=== PATIENT | male | born 1950 ===

== ENCOUNTER 2017-07-26 18:13 | Inpatient (IN) | payer MEDICARE, OTHER ==
[2017-07-26] VITALS (12 sets, daily range): BP systolic 79–149; BP diastolic 59–104
[~2017-07-26] VITALS: Ht 193 cm; Wt 129.5 kg
[~2017-07-26 18:13] MED LIST changes: -LEVO-85 PO
--- NOTE | 2017-07-26 18:34 | ER Report ---
History and Physical Time Seen By MD: 18:18 Hx. of Stated Complaint: SEIZURE - COMBATIVE UNRESPONSIVE. HPI/ROS CHIEF COMPLAINT: Seizure, altered mental status, combative,? Right-sided weakness HISTORY OF PRESENT ILLNESS: 57-year-old male brought in by EMS from home. Apparently called the ambulance for right-sided weakness. EMS arrived and the patient state he had a history of a TIA. Patient has a history of alcoholism. Patient subsequently had a seizure in the ambulance by EMS and then woke up postictal and combative. He has purposeful movement of all 4 extremities. Patient does have history and his old records of a fpc clearance from April of this year. He was too intoxicated to get out of a cab. Review of his internal medicine records shows a history of ascites secondary to liver cirrhosis. Endoscopy shows no varices. On arrival, patient has 4 mm pupils which are slowly reactive bilaterally. There seems to be an upward into the right gaze. Patient has gross blood coming from his mouth from biting his tongue during the seizure. Because of the patient's agitation and concerns for his airway. Rapid sequence intubation was performed. Patient was given succinyl choline 150 mg and etomidate 20 mg. A #8 ET tube was inserted after the vocal cords were visualized to approximately 23 cm at the gums. There was good vapor in the tube, good color change on capnography. There were good breath sounds bilaterally with bagging. A portable chest x-ray showed good placement of the tube. Patient was maintained on a Diprivan drip and taken to CT scan as part of a stroke alert. REVIEW OF SYSTEMS: Unable to obtain due to altered mental status Allergies: Coded Allergies: codeine (Verified Allergy, Unknown, 07/26/17) Past Medical/Surgical History Past medical history hypertension, alcoholic liver disease with cirrhosis, ascites status post paracentesis of 5 L, H. pylori, fatty liver, prostate cancer Past surgical history cholecystectomy. , EGD and colonoscopy 02/12 Unable To Obtain Past Medical: Unable to Obtain/Update Reviewed Nurses Notes: Yes Old Medical Records Reviewed: Yes Constitutional Vital Sign - Last 24 Hours 07/26/17 07/26/17 07/26/17 07/26/17 18:18 18:22 18:25 18:25 Pulse 133 133 Resp 26 20 B/P (MAP) 167/139 (148) 196/133 (154) 167/139 Pulse Ox 100 100 O2 Delivery Non-Rebreather O2 Flow Rate 15.0 07/26/17 07/26/17 07/26/17 07/26/17 18:30 18:35 18:40 18:50 Pulse 136 153 136 160 Resp 32 38 26 B/P (MAP) 236/152 (180) 198/137 (157) 196/163 (174) Pulse Ox 90 96 95 89 07/26/17 07/26/17 07/26/17 07/26/17 18:56 19:00 19:14 19:15 Pulse 135 125 129 Resp 20 21 28 B/P (MAP) 177/124 (141) 137/105 (116) Pulse Ox 93 92 94 O2 Delivery Mechanical Ventilator Mechanical Ventilator FiO2 70.0 07/26/17 07/26/17 07/26/17 07/26/17 19:40 19:45 19:50 19:55 Pulse 144 134 130 132 Resp 32 25 21 19 B/P (MAP) 207/153 (171) 186/136 (153) 153/107 (122) Pulse Ox 89 92 92 92 O2 Delivery Mechanical Ventilator Mechanical Ventilator Mechanical Ventilator 07/26/17 07/26/17 07/26/17 07/26/17 20:00 20:05 20:10 20:15 Pulse 131 124 121 124 Resp 23 30 27 Pulse Ox 94 94 94 07/26/17 07/26/17 07/26/17 20:19 20:22 20:25 Temp 100.4 Pulse 123 123 143 Resp 29 25 17 B/P (MAP) 98/69 (79) 97/69 (78) 143/107 (119) Pulse Ox 94 94 93 O2 Delivery Mechanical Ventilator Physical Exam General Appearance: The patient is alert, has no immediate need for airway protection and no signs of toxicity. Hypertensive, tachycardic, vital signs stable, pulse ox stable. On high flow O2, there is purposeful movement of all 4 extremities Eyes: Pupils equal and round no pallor or injection. Gaze appeared upward into the right ENT, Mouth: Mucous membranes are moist. Respiratory: There are no retractions, lungs are clear to auscultation. No wheezing or rails Cardiovascular: Regular rate and rhythm. Gastrointestinal: Abdomen is soft and non tender, no masses, bowel sounds normal. Neurological: Patient unresponsive, combative and agitated. Pupils are reactive and equal bilaterally. There is purposeful movement in all 4 extremities as he struggles against us Skin: Warm and dry, no rashes. Musculoskeletal: Neck is supple non tender. Extremities are nontender, nonswollen and have full range of motion. DIFFERENTIAL DIAGNOSIS: After history and physical exam differential diagnosis was considered for altered mental status including but not limited to hypoglycemia, infectious process, electrolyte abnormality, CVA, alcohol withdrawal seizure, acute delirium, head injury and intoxicants. Medical Decision Making Data Points Result Diagram: 07/26/17182907/26/171829 Laboratory Hematology Test 07/26/17 18:30 07/26/17 18:45 07/26/17 19:34 Red Blood Count 5.32 M/uL (4.00-5.60) Mean Corpuscular Volume 100.7 fL (80.0-96.0) Mean Corpuscular Hemoglobin 32.8 pg (26.0-33.0) Mean Corpuscular Hemoglobin Concent 32.6 g/dL (32.0-36.0) Red Cell Distribution Width 16.9 % (11.5-14.5) Mean Platelet Volume 8.4 fL (7.2-11.1) Neutrophils (%) (Auto) 72.7 % (39.4-72.5) Lymphocytes (%) (Auto) 16.3 % (17.6-49.6) Monocytes (%) (Auto) 9.0 % (4.1-12.4) Eosinophils (%) (Auto) 1.3 % (0.4-6.7) Basophils (%) (Auto) 0.7 % (0.3-1.4) Nucleated RBC Relative Count (auto) 0.0 /100WBC Neutrophils # (Auto) 9.6 K/uL (2.0-7.4) Lymphocytes # (Auto) 2.2 K/uL (1.3-3.6) Monocytes # (Auto) 1.2 K/uL (0.3-1.0) Eosinophils # (Auto) 0.2 K/uL (0.0-0.5) Basophils # (Auto) 0.1 K/uL (0.0-0.1) Nucleated RBC Absolute Count (auto) 0.00 K/uL Prothrombin Time 16.7 seconds (12.0-14.4) Prothromb Time International Ratio 1.33 Activated Partial Thromboplast Time 32 seconds (23-35) Sodium Level 143 mmol/L (137-145) Potassium Level 3.0 mmol/L (3.5-5.0) Chloride Level 93 mmol/L (98-107) Carbon Dioxide Level 19 mmol/L (22-30) Blood Urea Nitrogen 9 mg/dl (9-21) Creatinine 0.80 mg/dl (0.66-1.25) Glomerular Filtration Rate Calc > 60.0 Random Glucose 141 mg/dl (75-110) Calcium Level 10.3 mg/dl (8.4-10.2) Magnesium Level 1.5 mg/dl (1.7-2.2) Total Bilirubin 7.6 mg/dl (0.2-1.3) Aspartate Amino Transf (AST/SGOT) 104 U/L (0-35) Alanine Aminotransferase (ALT/SGPT) 43 U/L (0-56) Alkaline Phosphatase 133 U/L (0-126) Ammonia 271 UMOL/L (9-33) Troponin I < 0.012 ng/ml Total Protein 10.2 gm/dl (6.3-8.2) Albumin 5.1 g/dl (3.5-5.0) Serum Alcohol < 10 mg/dl Urine Opiates Screen Negative Urine Barbiturates Screen Negative Ur Tricyclic Antidepressants Screen Negative Urine Phencyclidine Screen Negative Urine Amphetamines Screen Negative Urine Benzodiazepines Screen Negative Urine Cocaine Screen Negative Urine Cannabinoids Screen Negative Urine Color Katharine Urine Clarity Slightly-cloudy Urine pH 5.0 pH (4.8-9.5) Urine Specific [place] 1.032 Urine Protein 500 mg/dL (NEGATIVE) Urine Glucose (UA) 50 mg/dL (NEGATIVE) Urine Ketones 20 mg/dL (NEGATIVE) Urine Blood Moderate (NEGATIVE) Urine Nitrite Negative (NEGATIVE) Urine Bilirubin Small (NEGATIVE) Urine Urobilinogen 2.0 mg/dL (0.2-1.9) Urine Leukocyte Esterase Negative (NEGATIVE) Urine RBC 12 /HPF (0-2/HPF) Urine WBC 2 /HPF (0-5/HPF) Urine Squamous Epithelial Cells Few /LPF (NONE-FEW) Urine Bacteria Few /HPF (NONE-FEW) Urine Hyaline Casts Many /LPF (NONE-FEW) Urine Mucus Few /HPF (NONE-FEW) Chemistry Test 07/26/17 18:30 07/26/17 18:45 07/26/17 19:34 White Blood Count 13.2 k/uL (4.5-11.0) Red Blood Count 5.32 M/uL (4.00-5.60) Hemoglobin 17.5 g/dL (14.0-18.0) Hematocrit 53.5 % (42.0-52.0) Mean Corpuscular Volume 100.7 fL (80.0-96.0) Mean Corpuscular Hemoglobin 32.8 pg (26.0-33.0) Mean Corpuscular Hemoglobin Concent 32.6 g/dL (32.0-36.0) Red Cell Distribution Width 16.9 % (11.5-14.5) Platelet Count 81 K/uL (150-450) Mean Platelet Volume 8.4 fL (7.2-11.1) Neutrophils (%) (Auto) 72.7 % (39.4-72.5) Lymphocytes (%) (Auto) 16.3 % (17.6-49.6) Monocytes (%) (Auto) 9.0 % (4.1-12.4) Eosinophils (%) (Auto) 1.3 % (0.4-6.7) Basophils (%) (Auto) 0.7 % (0.3-1.4) Nucleated RBC Relative Count (auto) 0.0 /100WBC Neutrophils # (Auto) 9.6 K/uL (2.0-7.4) Lymphocytes # (Auto) 2.2 K/uL (1.3-3.6) Monocytes # (Auto) 1.2 K/uL (0.3-1.0) Eosinophils # (Auto) 0.2 K/uL (0.0-0.5) Basophils # (Auto) 0.1 K/uL (0.0-0.1) Nucleated RBC Absolute Count (auto) 0.00 K/uL Prothrombin Time 16.7 seconds (12.0-14.4) Prothromb Time International Ratio 1.33 Activated Partial Thromboplast Time 32 seconds (23-35) Glomerular Filtration Rate Calc > 60.0 Calcium Level 10.3 mg/dl (8.4-10.2) Magnesium Level 1.5 mg/dl (1.7-2.2) Total Bilirubin 7.6 mg/dl (0.2-1.3) Aspartate Amino Transf (AST/SGOT) 104 U/L (0-35) Alanine Aminotransferase (ALT/SGPT) 43 U/L (0-56) Alkaline Phosphatase 133 U/L (0-126) Ammonia 271 UMOL/L (9-33) Troponin I < 0.012 ng/ml Total Protein 10.2 gm/dl (6.3-8.2) Albumin 5.1 g/dl (3.5-5.0) Serum Alcohol < 10 mg/dl Urine Opiates Screen Negative Urine Barbiturates Screen Negative Ur Tricyclic Antidepressants Screen Negative Urine Phencyclidine Screen Negative Urine Amphetamines Screen Negative Urine Benzodiazepines Screen Negative Urine Cocaine Screen Negative Urine Cannabinoids Screen Negative Urine Color Katharine Urine Clarity Slightly-cloudy Urine pH 5.0 pH (4.8-9.5) Urine Specific [place] 1.032 Urine Protein 500 mg/dL (NEGATIVE) Urine Glucose (UA) 50 mg/dL (NEGATIVE) Urine Ketones 20 mg/dL (NEGATIVE) Urine Blood Moderate (NEGATIVE) Urine Nitrite Negative (NEGATIVE) Urine Bilirubin Small (NEGATIVE) Urine Urobilinogen 2.0 mg/dL (0.2-1.9) Urine Leukocyte Esterase Negative (NEGATIVE) Urine RBC 12 /HPF (0-2/HPF) Urine WBC 2 /HPF (0-5/HPF) Urine Squamous Epithelial Cells Few /LPF (NONE-FEW) Urine Bacteria Few /HPF (NONE-FEW) Urine Hyaline Casts Many /LPF (NONE-FEW) Urine Mucus Few /HPF (NONE-FEW) Coagulation Test 07/26/17 18:30 Prothrombin Time 16.7 seconds Prothromb Time International Ratio 1.33 Activated Partial Thromboplast Time 32 seconds Toxicology Test 07/26/17 18:30 07/26/17 18:45 Serum Alcohol < 10 mg/dl Urine Opiates Screen Negative Urine Barbiturates Screen Negative Ur Tricyclic Antidepressants Screen Negative Urine Phencyclidine Screen Negative Urine Amphetamines Screen Negative Urine Benzodiazepines Screen Negative Urine Cocaine Screen Negative Urine Cannabinoids Screen Negative Urinalysis Test 07/26/17 19:34 Urine Color Katharine Urine Clarity Slightly-cloudy Urine pH 5.0 pH (4.8-9.5) Urine Specific [place] 1.032 Urine Protein 500 mg/dL (NEGATIVE) Urine Glucose (UA) 50 mg/dL (NEGATIVE) Urine Ketones 20 mg/dL (NEGATIVE) Urine Blood Moderate (NEGATIVE) Urine Nitrite Negative (NEGATIVE) Urine Bilirubin Small (NEGATIVE) Urine Urobilinogen 2.0 mg/dL (0.2-1.9) Urine Leukocyte Esterase Negative (NEGATIVE) Urine RBC 12 /HPF (0-2/HPF) Urine WBC 2 /HPF (0-5/HPF) Urine Squamous Epithelial Cells Few /LPF (NONE-FEW) Urine Bacteria Few /HPF (NONE-FEW) Urine Hyaline Casts Many /LPF (NONE-FEW) Urine Mucus Few /HPF (NONE-FEW) EKG/Imaging Imaging X-ray: Single view portable chest x-ray was obtained. I viewed the images myself on the PACS system. My interpretation of the images is: ET tube is in good placement. Partially 37 years above the cristela, lung jolley are clear. The left costophrenic angle is cut off. The radiologist interpretation had no clinically significant variation from this interpretation. Results: CT scan of the [head] was obtained. The results of the study are The study was read by the radiologist. I viewed the images myself on the PACS system. ED Course/Re-evaluation Clinical Indication for ER IV: Hydration, IV Access ED Course Patient was admitted to an examination room by EMS. He was grossly altered and combative. Patient had a seizure at home. Patient has a history of previous alcoholic liver disease. Patient was jailed clearance in April of this year for alcohol intoxication. Patient's followed by Dr. Butt in internal medicine clinic. Please see his notes for additional information. Patient was intubated after arrival to protect his airway due to his altered mental status. Patient was medicated with succinyl choline 150 mg and etomidate 20 mg. Report from the patient was right-sided weakness prior to having seizure while in transport with EMS. On arrival, patient was having snoring respirations and was combative. Patient underwent rapid sequence sedation. Patient was administered several doses of Ativan 2 mg IV as well as rocuronium. A propofol drip was initiated for sedation. Patient was sent to CT scan to rule out catastrophic CVA or intracranial hemorrhage. Diagnostic studies show elevated MCV, elevated ammonia level, elevated bilirubin and mild elevation of his LFTs. Blood alcohol was 0. Urine drug tox screen was negative. 07/26/2017 8:26:22 pm case discussed with Dr. Kevin siddiqui, who accepts patient for admission to ICU Decision to Disposition Date: Jul 26, 2017 Decision to Disposition Time: 18:57 Critical Care Time I spent a total of 90 minutes of critical care time in obtaining history, performing a physical exam, bedside monitoring of interventions, collecting and interpreting tests and discussion with consultants but not including time spent performing procedures. Depart Departure Latest Vital Signs Vital Signs Date Time Temp Pulse Resp B/P (MAP) Pulse Ox O2 Delivery O2 Flow Rate FiO2 07/26/17 20:25 143 17 143/107 (119) 93 07/26/17 20:22 100.4 Mechanical Ventilator 07/26/17 19:00 70.0 07/26/17 18:18 15.0 Impression: Primary Impression: Altered mental status, unspecified Additional Impressions: End stage liver disease Hyperammonemia Hyperbilirubinemia Hypokalemia Hypertension Alcohol withdrawal seizure Condition: Improved Disposition: Admitted from ER Problem Qualifiers Primary Impression: Altered mental status, unspecified Altered mental status type: disorientation Qualified Codes: R41.0 - Disorientation, unspecified Additional Impressions: Hypertension Hypertension type: essential hypertension Qualified Codes: I10 - Essential ( primary) hypertension Alcohol withdrawal seizure Complication of substance-induced condition: with unspecified complication Qualified Codes: F10.239 - Alcohol dependence with withdrawal, unspecified; R56.9 - Unspecified convulsions BREEZY ALCALA DO Jul 26, 2017 18:34
[2017-07-26 18:44] LABS: PLATELET COUNT, AUTOMATED 81 K/uL (150-450)
[2017-07-26] MEDS ORDERED: LORazepam 2 MG/ML VIAL IVP ONE ×4 (18:45→20:25)
[2017-07-26] MEDS ORDERED: ROCURONIUM BROM 10 MG/ML 10 ML IVP PRN (18:50)
[2017-07-26] MEDS ORDERED: LORazepam 2 MG/ML VIAL ONE (18:52)
[2017-07-26 18:53] LABS: INR 1.33
--- NOTE | 2017-07-26 18:58 | RADIOLOGY IMAGING REPORT ---
FACILITY: [facility] PATIENT NAME: Kennedy Polanco : 1950 MR: [id number] V: [id number] EXAM DATE: ORDERING PHYSICIAN: BREEZY ALCALA TECHNOLOGIST: Location: [facility] - [place] Patient: Kennedy Polanco : 1950 Visit/Account:[id number] Date of Sevice: 07/26/2017 CHEST SINGLE AP Indication: Intubated. Tube placement.. Comparison: None available Findings: Endotracheal tubes in place approximately 3-4 cm above the cristela in good position. Lung sounds are decreased causing accentuation to the interstitium. No focal consolidation, pneumotho rax or pleural effusion. Cardiomediastinal silhouette and pulmonary vessels within normal limits for the technique and inspiration and rotation. Upper abdomen is unremarkable. No acute bony abnormality. IMPRESSION: 1. Endotracheal tube is in good position approximately 3-4 cm above the cristela. No pneumothorax. 2. Low lung volumes without indication of acute cardiopulmonary disease. Report Dictated By: Errol Dukes at 07/26/2017 6:51 PM Report E-Signed By: Errol Dukes at 07/26/2017 6:54 PM WSN:[id number]
[2017-07-26] MEDS ORDERED: THIAMINE HCL(*) 200 MG/2 ML IN 100 MG, FOLIC ACID(*) 50 MG/10 ML INJ 1 MG, MULTIVITAMIN... IV ONE (19:03)
[2017-07-26] MEDS ORDERED: DIAZEPAM 10 MG/2 ML SYR IVP ONE ×2 (19:45→20:25)
--- NOTE | 2017-07-26 20:04 | RADIOLOGY IMAGING REPORT ---
FACILITY: PATIENT NAME: Kennedy Polanco : 1950 MR: [id number] V: [id number] EXAM DATE: ORDERING PHYSICIAN: BREEZY ALCALA TECHNOLOGIST: Location: [facility] - [place] Patient: Kennedy Polanco : 1950 Visit/Account:[id number] Date of Sevice: 07/26/2017 EXAMINATION: Head CT without intravenous contrast HISTORY: Altered mental status. COMPARISON: None. TECHNIQUE: Contiguous axial images were obtained from the skull base to the vertex without intraven ous contrast. Sagittal and coronal reformatted images are also submitted. One of the following dose optimization techniques was utilized in the performance of this exam: Autom ated exposure control; adjustment of the mA and/or kV according to the patient's size; or use of an i terative reconstruction technique. Specific details can be referenced in the facility's radiology C T exam operational policy. FINDINGS: Brain and intracranial structures: Mild cerebral volume loss with corresponding mild sulcal prominen ce. Ventricles are normal in size. Basal cisterns are patent. Melendez-white matter differentiation is ma intained. No midline shift, acute hemorrhage, mass, or evidence of acute infarct. Vessels: Calcified plaque of the carotid siphons and distal left vertebral artery. Calvarium / scalp: Negative. Skull base / visualized face: There are multiple tiny bubbles of air within the left parotid gland. Endotracheal tube is partially visualized. Visualized sinuses / orbits: Mild mucosal thickening in the left maxillary sinus. Mild rightward dev iation of the nasal septum. IMPRESSION: No acute intracranial abnormality. Mild cerebral atrophy. Tiny bubbles of air within the left parotid gland. These are of uncertain etiology, however, these co uld potentially be secondary to air within the veins from venous access. Report Dictated By: Demetris Sullivan MD at 07/26/2017 7:52 PM Report E-Signed By: Demetris Sullivan MD at 07/26/2017 8:01 PM WSN:[id number]
[2017-07-26] MEDS ORDERED: LR(*) 1000 ML BAG 1,000 ML ONE (20:07)
[2017-07-26] MEDS: ORAL SUCTION/CHLORHX/SWAB KIT MT SCH (21:00)
[2017-07-26] MEDS ORDERED: DIAZEPAM 10 MG/2 ML SYR ONE (21:21)
[2017-07-26] MEDS ORDERED: MIDAZOLAM IV ONE (21:35)
[2017-07-26] MEDS ORDERED: NS(*) 0.9% 100 ML BAG 100 ML ONE (21:37)
[2017-07-26] MEDS ORDERED: NS(*) 0.9% 500 ML BAG 500 ML ONE (21:40)
--- NOTE | 2017-07-26 22:11 | History & Physical ---
History of Present Illness Chief Complaint Altered mental status, Seizure and R-sided numbness History of Present Illness Mr. Mulligan is a 57-year-old male with PMH of HTN, Alcohol Liver Disease/ Cirrhosis and h/o Prostate Cancer who was brought in by EMS from home. Apparently called the ambulance for right-sided weakness. EMS arrived and the patient state he had a history of a TIA. Patient has a history of alcoholism. Patient subsequently had a seizure in the ambulance by EMS and then woke up postictal and combative. He has purposeful movement of all 4 extremities. Patient does have history and his old records of a senior care clearance from April of this year. He was too intoxicated to get out of a cab. Review of his internal medicine records shows a history of ascites secondary to liver cirrhosis. Endoscopy shows no varices. On arrival, patient has 4 mm pupils which are slowly reactive bilaterally. There seems to be an upward into the right gaze. Patient has gross blood coming from his mouth from biting his tongue during the seizure. Because of the patient's agitation and concerns for his airway. Rapid sequence intubation was performed. Patient was given succinyl choline 150 mg and etomidate 20 mg. A #8 ET tube was inserted after the vocal cords were visualized to approximately 23 cm at the gums. There was good vapor in the tube, good color change on capnography. There were good breath sounds bilaterally with bagging. A portable chest x-ray showed good placement of the tube. Patient was maintained on a Diprivan drip and taken to CT scan as part of a stroke alert. ER evaluation revealed low K level 3.0, high Ammonia level 271, low Mag level1.5 , Proteinuria, Troponin <0.012, AST 104 and ALT 43, T.Bili 7.6, INRis 1.3, Alcohol level <10 and urine tox. negative. His head CT scan was negative for acute stroke.. I discussed the case with the ER-MD and admitted the patient to the ICU for further evaluation and management. Patient is currently intubated, sedated with Propofol and Versed drip for Vent management and seizure/DT management. History Allergies: Coded Allergies: codeine (Verified Allergy, Unknown, 07/26/17) Review of Systems Other I could not obtain ROS Exam Vital Signs Vital Signs Date Time Temp Pulse Resp B/P (MAP) Pulse Ox O2 Delivery O2 Flow Rate FiO2 07/26/17 20:55 99.6 121 22 113/86 (95) 93 Mechanical Ventilator 07/26/17 18:18 15.0 General Appearance: Other (Intubated, Ventilated and sedated ) Neuro: No Gross deficits Eyes: Other (small pupils) ENT: Other (blood tinged sputum from his mouth) Neck: No Masses Cardiovascular: Other (sinus tachycardia) Respiratory: Clear to Auscultation (Ventilated) GI: Abd Soft and Non-Tender, Other (obese) Musculoskeletal: No Weakness/Pain Extremities: Warm, Pulses Integumentary: Skin Intact without Lesion / Mass Psych: Other (sedated and ventilated) Medical Decision Making Data Points Result Diagram: 07/26/17 1830 07/26/17 1830 EKG / Imaging Monitor Interpretation: Sinus Tachycardia Imaging CT Head with no acute pathology Pre-Admit Course ED Medications Reviewed Medical Record Review: Yes Assessment and Plan Problems: (1) Alcohol withdrawal seizure with complication Status: Acute Assessment & Plan: Patient presented with alcohol withdrawal seizure and with AMS requiring immediate intubation to protect his airways. He is on IMV 16, TV 650, PS10, Peep5 and FiO2 70%, He is on Propofol drip and Versed drip to maintained his sedation. He is getting Banana bag for his underlying alcohol related electrolyte disturbance ans fluid management. He is getting DVT prophylaxis with Lovenox and GI prophylaxis with Protonix (2) Acute hypercapnic respiratory failure Status: Acute Assessment & Plan: He is prophylactically intubated to protect his airways due to his alcohol withdrawal and seizure. He is on Propofol and Versed drip to maintained his sedation. He is on IMV 16, TV 650, PS10, Peep5 and FiO2 70%. (3) Electrolyte and fluid disorder Status: Acute Assessment & Plan: I will replace his K and Mag accordingly and I will also check his PO4 level. (4) End stage liver disease Status: Chronic Assessment & Plan: I will start him on OGT and start Lactulose 30ml VOGT qid. I will repeat his Ammonia level in am. Central Venous Access Medical Necessity for Access: Hemodynamic Monitoring, IV Access, Medication Administration Condition Critical Critical Time Spent: 1st 30-74 Minutes Copies to: ALLISON HWANG MD Venous Thromboembolism VTE Risk Physician Assess for VTE Risk: Yes Patient's VTE Risk: High VTE Diagnostic Test 2 Days Prior to Admit: No Antithrombotics Is Pt On Any Antithrombotics?: No Exam Sepsis Risk: No Definite Risk CHUN CUETO MD Jul 26, 2017 22:11
[2017-07-26] MEDS ORDERED: THIAMINE HCL 200 MG/2 ML INJ ONE (22:35)
[2017-07-26] MEDS ORDERED: NS(*) 0.9% 1000 ML BAG 1,000 ML ONE (22:48)
[2017-07-26] MEDS: PROPOFOL(*)1000 MG/100 ML VIAL 100 ML IV PRN (23:56)
[2017-07-26] MEDS: PANTOPRAZOLE SOD 40 MG IV VIAL IVP SCH (23:58)
[2017-07-26] MEDS: LACTULOSE 10 GM/15 ML UDCUP FT SCH (23:58)
[2017-07-27] VITALS (91 sets, daily range): BP systolic 75–110; BP diastolic 56–81
--- NOTE | 2017-07-27 01:35 | RADIOLOGY IMAGING REPORT ---
FACILITY: [facility] - [place] PATIENT NAME: Kennedy Polanco : 1950 MR: [id number] V: [id number] EXAM DATE: ORDERING PHYSICIAN: CHUN CUETO TECHNOLOGIST: Location: [facility] [place] Patient: Kennedy Polanco : 1950 Visit/Account:[id number] Date of Sevice: 07/27/2017 CHEST SINGLE AP COMPARISONS: July 26, 2017 ADDITIONAL PERTINENT HISTORY: Gastric tube placement. FINDINGS: Life-support: Endotracheal tube in stable position. Placement of an NG tube with its tip in the proxi mal portion of the stomach which is mildly distended. Cardiomediastinal silhouette: Negative. Pulmonary vasculature: Suggestion of mild vascular congestion without teresita pulmonary edema. Lung jolley: Decreased lung volumes with mild background atelectatic change. Pleural spaces: Negative. Osseous structures: Negative. Surrounding soft tissues: Negative. IMPRESSION: 1. Life support as detailed above with an NG tube in the proximal portion of the stomach. 2. Mild vascular congestion without teresita pulmonary edema. 3. Decreased lung volumes with mild bibasilar atelectatic change. Report Dictated By: Lionel Padilla MD at 07/27/2017 1:27 AM Report E-Signed By: Lionel Padilla MD at 07/27/2017 1:31 AM WSN:[id number]
[2017-07-27] MEDS ORDERED: KCL/DNS 20 MEQ/1000 ML PREMIX 1,000 ML IV ONE (03:38)
[2017-07-27] MEDS ORDERED: KCL 2 MEQ/ML 20 MEQ/10 ML VIAL 20 MEQ in D5NS(*) 1000 ML BAG 1,000 ML IV SCH (04:00)
[2017-07-27] MEDS: LACTULOSE 10 GM/15 ML UDCUP FT SCH ×4 (05:30→23:32)
[2017-07-27 06:07] LABS: PLATELET COUNT, AUTOMATED 48 K/uL (150-450)
[2017-07-27] MEDS: PROPOFOL(*)1000 MG/100 ML VIAL 100 ML IV PRN ×4 (06:26→22:18)
[2017-07-27] MEDS: KCL (*) 20 MEQ/100 ML PREMIX 100 ML IV SCH ×4 (07:02→13:13)
--- NOTE | 2017-07-27 08:55 | Hospitalist Progress Note ---
Subjective Progress Notes Subjective Mr. Mulligan is a 57-year-old male with PMH of HTN, Alcohol Liver Disease/ Cirrhosis and h/o Prostate Cancer who was brought in by EMS from home. Apparently called the ambulance for right-sided weakness. EMS arrived and the patient state he had a history of a TIA. Patient has a history of alcoholism. Patient subsequently had a seizure in the ambulance by EMS and then woke up postictal and combative. He has purposeful movement of all 4 extremities. Patient does have history and his old records of a fpc clearance from April of this year. He was too intoxicated to get out of a cab. Review of his internal medicine records shows a history of ascites secondary to liver cirrhosis. Endoscopy shows no varices. On arrival, patient has 4 mm pupils which are slowly reactive bilaterally. There seems to be an upward into the right gaze. Patient has gross blood coming from his mouth from biting his tongue during the seizure. Because of the patient's agitation and concerns for his airway. Rapid sequence intubation was performed. Patient was given succinyl choline 150 mg and etomidate 20 mg. A #8 ET tube was inserted after the vocal cords were visualized to approximately 23 cm at the gums. There was good vapor in the tube, good color change on capnography. There were good breath sounds bilaterally with bagging. A portable chest x-ray showed good placement of the tube. Patient was maintained on a Diprivan drip and taken to CT scan as part of a stroke alert. ER evaluation revealed low K level 3.0, high Ammonia level 271, low Mag level1.5 , Proteinuria, Troponin <0.012, AST 104 and ALT 43, T.Bili 7.6, INRis 1.3, Alcohol level <10 and urine tox. negative. His head CT scan was negative for acute stroke.. I discussed the case with the ER-MD and admitted the patient to the ICU for further evaluation and management. Patient is currently intubated, sedated with Propofol and Versed drip for Vent management and seizure/DT management. 07/27: He is still critical, intubated, well sedated with Propofol and Versed but stable on ventilator requiring FiO2 35%. He is hemodynamically stable. His Ammonia level has gone down from 271 to 45 after using Lactulose and fluids. His K level is low 2.8. His Plt. are 48K Patient Complains of: Musculoskeletal: Other (Intubated, sedated and ventilated, could obtain his ROS ) Physical Exam Vital Signs Date Time Temp Pulse Resp B/P (MAP) Pulse Ox O2 Delivery O2 Flow Rate FiO2 07/27/17 07:47 92 07/27/17 07:34 35.0 07/27/17 07:33 16 07/27/17 07:15 97.6 103/76 (85) 96 Mechanical Ventilator 07/26/17 18:18 15.0 Intake and Output 07/28/17 07:00 Output Total 60 ml Balance -60 ml Output Urine Total 60 ml General Appearance: Other (Well sedated) Neuro: No Gross deficits Eyes: Other (small pupils) ENT: Other (intubated with ETT intact) Neck: No Masses Cardiovascular: Normal Rhythm & Peripheral Pulses, Regular Rate and Rhythm, No Edema, No JVD Respiratory: No Respiratory Distress, Clear to Auscultation GI: Soft and Non-Tender Extremities: Soft and Non Tender, Warm, Pulses Integumentary: Skin Intact without Lesion / Mass Psych: Other (sedated) Result Diagram: 07/27/17 0525 07/27/17 0525 Monitor Interpretation: Sinus Tachycardia Assessment and Plan Problems: (1) Alcohol withdrawal seizure with complication Status: Acute Assessment & Plan: Patient presented with alcohol withdrawal seizure and with AMS requiring immediate intubation to protect his airways. He is on IMV 16, TV 650, PS10, Peep5 and FiO2 70%, He is on Propofol drip and Versed drip to maintained his sedation. He is getting Banana bag for his underlying alcohol related electrolyte disturbance ans fluid management. He is getting DVT prophylaxis with Lovenox and GI prophylaxis with Protonix 07/27: No further seizure activity noted and well sedated. I will continue his current management and keep him on Vent. today. I will hold his Lovenox due to hematuria and his low Plt. I will use SCD's. I will try to taper his Versed and evaluate him. I will also taper his Propofol gradually. (2) Acute hypercapnic respiratory failure Status: Acute Assessment & Plan: He is prophylactically intubated to protect his airways due to his alcohol withdrawal and seizure. He is on Propofol and Versed drip to maintained his sedation. He is on IMV 16, TV 650, PS10, Peep5 and FiO2 70%. 07/27: He is still intubated and tolerating FiO2 35%. His airways is maintained. (3) Electrolyte and fluid disorder Status: Acute Assessment & Plan: I will replace his K and Mag accordingly and I will also check his PO4 level. 07/27: His K level is 2.8 and I will give him 80meq KCL today and recheck his K and Mg level in am. I will also check his PO4 level, CBC and CMP in am. I will decrease his IVF to D5NS to 100ml/h (4) End stage liver disease Status: Chronic Assessment & Plan: I will start him on OGT and start Lactulose 30ml VOGT qid. I will repeat his Ammonia level in am. 07/27: He did not have any BM yet but his Ammonia level has decreased from 271 to 45 and his T. bili is 5.1. Central Venous Access Medical Necessity for Access: Hemodynamic Monitoring, IV Access, Medication Administration Critical Time Spent: 1st 30-74 Minutes Copies to: ALLISON HWANG MD Exam Sepsis Risk: No Definite Risk CHUN CUETO MD Jul 27, 2017 08:55
[2017-07-27] MEDS: ORAL SUCTION/CHLORHX/SWAB KIT MT SCH ×2 (09:00→21:00)
[2017-07-27] MEDS ORDERED: ENOXAPARIN 40 MG/0.4ML SYR SC SCH (09:00)
[2017-07-27] MEDS ORDERED: KCL/DNS 20 MEQ/1000 ML PREMIX 1,000 ML IV SCH (10:00)
[2017-07-27] MEDS: MIDAZOLAM 50 MG/10 ML 1ML VIAL 100 MG in NS(*) 0.9% 100 ML BAG 80 ML IV PRN (15:18)
[2017-07-27] MEDS: KCL/DNS 20 MEQ/1000 ML PREMIX 1,000 ML IV SCH (15:22)
[2017-07-27] MEDS: PANTOPRAZOLE SOD 40 MG IV VIAL IVP SCH (21:10)
[2017-07-28] VITALS (58 sets, daily range): BP systolic 91–130; BP diastolic 62–100; Ht 193 cm; Wt 129.5 kg
[2017-07-28] MEDS: KCL/DNS 20 MEQ/1000 ML PREMIX 1,000 ML IV SCH ×3 (01:42→22:43)
[2017-07-28] MEDS: PROPOFOL(*)1000 MG/100 ML VIAL 100 ML IV PRN ×6 (01:43→22:41)
[2017-07-28 05:38] LABS: PLATELET COUNT, AUTOMATED 40 K/uL (150-450)
[2017-07-28] MEDS: LACTULOSE 10 GM/15 ML UDCUP FT SCH ×3 (05:45→17:45)
[2017-07-28] MEDS: MIDAZOLAM 50 MG/10 ML 1ML VIAL 100 MG in NS(*) 0.9% 100 ML BAG 80 ML IV PRN ×2 (05:52→20:32)
[2017-07-28] MEDS: KCL (*) 20 MEQ/100 ML PREMIX 100 ML IV SCH ×2 (06:35→08:42)
--- NOTE | 2017-07-28 08:30 | RADIOLOGY IMAGING REPORT ---
FACILITY: [facility] PATIENT NAME: Kennedy Polanco : 1950 MR: [id number] V: [id number] EXAM DATE: ORDERING PHYSICIAN: KATIE DOSHI TECHNOLOGIST: Location: [facility] Patient: Kennedy Polanco : 1950 Visit/Account:[id number] Date of Sevice: 07/28/2017 CHEST SINGLE AP History: Intubation Comparison 07/27/2017. FINDINGS: Endotracheal tube and NG tube remain in position. Cardiomegaly and mediastinal contour unchanged. P ulmonary vascular congestion mildly improved. No consolidation or gross effusion. No pneumothorax. IMPRESSION: Mild improvement in pulmonary vascular congestion, otherwise stable. Report Dictated By: Sergio Mcbride MD at 07/28/2017 8:25 AM Report E-Signed By: Sergio Mcbride MD at 07/28/2017 8:27 AM WSN:[id number]
[2017-07-28] MEDS: CHLORHEXIDINE 0.12% 18 MG/15ML MM SCH ×2 (08:42→21:02)
[2017-07-28] MEDS: ORAL SUCTION/CHLORHX/SWAB KIT MT SCH ×2 (08:42→21:00)
[2017-07-28] MEDS: MOISTURIZING CREAM 120 GM JAR TP SCH ×2 (10:13→21:03)
[2017-07-28] MEDS: TRIAMCINOLONE ACE 0.1% CR 15GM TP SCH ×2 (10:13→21:03)
[2017-07-28 14:57] LABS: PLATELET COUNT, AUTOMATED 50 K/uL (150-450)
--- NOTE | 2017-07-28 16:04 | Medical Nutrition Therapy ---
Nutrition Anthropometrics Height (Inches): 76.00 Height (Calculated Centimeters: [phone] Weight (Pounds): 265 Weight (Calculated Kilograms): 120.202 BMI Calculated: 32.25 Cameron Nutrition Score: Probably Inadequate Cameron Nutrition Risk Score: 12 Dietary Referral Nutrition Risk Factors: Nutrition Risk Comment: Physical Findings Physical Appearance: Obese BMI 30-39 Skin Appearance Skin Appearance: Edema Edema Location Modifier: Edema Location: Type of Edema: Degree of Edema: Gastrointestinal Symptoms GI Symtoms: Tube Present: NG Bowel Sounds: Recent Bowel Pattern: Stool Characteristics: Nutritional Diagnosis Nutritional Risk Acuity 1: Pulm Fail Vent Nutritional Risk Acuity 2: Liver Cirrhosis Nutritional Risk Acuity 3: Alcohol abuse Past Medical History: End stage liver disease, Hyperammonemia, Hyperbilirubinemia,Hypokalemia Hypertension, Alcohol withdrawal seizure Nutritional Acuity: 1-High Nutrition Diagnosis: Altered GI Function Nutrition Etiology: Alcohol Addiction Nutrition Problem/Etiology/Sym: Altered Gastrointestinal (GI) Function related to compromised exocrine function of related GI organs, e.g., liver AEB diagnosis of end stage liver disease/alcoholic cirrhosis. Energy Requirement: 1850 (6034-2050 per ESPEN (11-14 Kcal/kg)) Protein Requirement: 76 (IBW kg 0.8) Fluid Requirement: 1850 Diet Type: Tube Feeding (TF) Nutrition Intervention: Incr diet as tolerated Nutritional Support Current Enteral / Parental: Tube Feeding Tube Feeding Formulas: Osmolite 1cal/ml-Isotonic Tube Feeding Supplement Streng: Full Rate: 50mL/hr Current Calories: 1272 Current Protein: 53 Nutrition Monitoring & Eval Nutrition Goals: Eat 50-100% Meal RD Patient Assessment Time: [address] Assessment Type: RD Assessment Patient Nutrition Acuity: 1-High Follow Up Date: Jul 29, 2017 Nutritional Comment: Pt admitted to ICU for intubation with ETOH withdrawal. Alb 3.0, Ammonia 45, Glu 113. Pt NPO with Osmolite 1 Wojciech Tube feeding. TF started at 20mL/hr with final rate of 50mL/hr. Final rate will provide 1272 Kcals, 53 grams protein, and 1010mL of free water. Pt also receiving propofol for sedation which contributes 1.1 kcals/mL as fat. Monitor TF tolerance, labs, etc. LANCE ENGLISH Jul 28, 2017 16:04
--- NOTE | 2017-07-28 16:45 | Hospitalist Progress Note ---
Subjective Progress Notes Subjective Patient agitated this am per nursing staff. Propofol had to be increased a bit. Physical Exam Vital Signs Date Time Temp Pulse Resp B/P (MAP) Pulse Ox O2 Delivery O2 Flow Rate FiO2 07/28/17 16:30 101.4 90 21 105/64 (78) 94 Mechanical Ventilator 35.0 07/26/17 18:18 15.0 Intake and Output 07/29/17 07:00 Intake Total 922.9 ml Output Total 365 ml Balance 557.9 ml Intake IV Total 832.9 ml Tube Irrigant 90 ml Output Urine Total 365 ml # Bowel Movements 2 General Appearance: Other (Intubated and sedated.) Neuro: No Gross deficits Cardiovascular: Regular Rate and Rhythm Respiratory: Other (Scattered rhonchi.) GI: Soft and Non-Tender Extremities: Warm, Perfused Integumentary: Skin Intact without Lesion / Mass Psych: Other (Sedated.) Result Diagram: 07/28/17 1405 07/28/17454 Item Value Date Time Calcium Level 8.3 mg/dl L 07/28/17454 Phosphorus Level 2.6 mg/dl 07/28/17 0455 Magnesium Level 2.1 mg/dl 07/28/17 0455 Total Bilirubin 3.9 mg/dl H 07/28/17 0455 Aspartate Amino Transf (AST/SGOT) 67 U/L H 07/28/17 0455 Alanine Aminotransferase (ALT/SGPT) 35 U/L 07/28/17 0455 Alkaline Phosphatase 89 U/L 07/28/17 0455 Ammonia 45 UMOL/L H 07/27/17 0525 Total Protein 6.3 gm/dl 07/28/17 0455 Albumin 3.0 g/dl L 07/28/17 0455 Blood Gas Puncture Site Left radial 07/28/17 08 Blood Gas Patient Temperature 100.4 DEGREES 07/28/17 0812 Arterial Blood pH 7.43 07/28/17 0812 Arterial Blood Partial Pressure CO2 34 mmHg 07/28/17 08 Arterial Blood Partial Pressure O2 66 mmHg 07/28/17 0812 Arterial Blood HCO3 22 mmol/L 07/28/17 08 Arterial Blood Oxygen Saturation 92 % 07/28/17 08 Arterial Blood Base Excess -2.0 mmol/L 07/28/17 08 Nba Test Acceptable 07/28/17 0812 Oxygen Liters/Minute 30% 07/28/17 0812 Prothrombin Time 16.7 seconds H 07/26/17 1830 Prothromb Time International Ratio 1.33 07/26/17 1830 Activated Partial Thromboplast Time 32 seconds 07/26/17 1830 Urine Color Katharine 07/27/17 0500 Urine Clarity Turbid 07/27/17 0500 Urine pH 5.0 pH 07/27/17 0500 Urine Specific [place] 1.030 07/27/17 0500 Urine Protein 30 mg/dL 07/27/17 0500 Urine Glucose (UA) Negative mg/dL 07/27/17 0500 Urine Ketones Trace mg/dL 07/27/17 0500 Urine Blood Negative 07/27/17 0500 Urine Nitrite Negative 07/27/17 0500 Urine Bilirubin Negative 07/27/17 0500 Urine Leukocyte Esterase Negative 07/27/17 0500 Urine RBC 2 /HPF 07/27/17 0500 Urine WBC 7 /HPF 07/27/17 0500 Urine Squamous Epithelial Cells None /LPF 07/27/17 0500 Urine Transitional Epithelial Cells Few /LPF 07/27/17 0500 Urine Amorphous Crystals Moderate /HPF 07/27/17 0500 Urine Bacteria Negative /HPF 07/27/17 0500 Urine Hyaline Casts Moderate /LPF H 07/27/17 0500 Urine Mucus Few /HPF 07/27/17 0500 Imaging FACILITY: [facility] PATIENT NAME: Kennedy Polanco : 1950 MR: [id number] V: [id number] EXAM DATE: [id number] ORDERING PHYSICIAN: KATIE DOSHI TECHNOLOGIST: Location: [facility] [place] Patient: Kennedy Polanco : 1950 Visit/Account:[id number] Date of Sevice: 07/28/2017 CHEST SINGLE AP History: Intubation Comparison 07/27/2017. FINDINGS: Endotracheal tube and NG tube remain in position. Cardiomegaly and mediastinal contour unchanged. Pulmonary vascular congestion mildly improved. No consolidation or gross effusion. No pneumothorax. IMPRESSION: Mild improvement in pulmonary vascular congestion, otherwise stable. Report Dictated By: Sergio Mcbride MD at 07/28/2017 8:25 AM Report E-Signed By: Sergio Mcbride MD at 07/28/2017 8:27 AM WSN:[id number] Monitor Interpretation: Sinus Tachycardia Assessment and Plan Problems: (1) Alcohol withdrawal seizure with complication Status: Acute Assessment & Plan: Patient presented with alcohol withdrawal seizure and with AMS requiring immediate intubation to protect his airways. He is on IMV 16, TV 650, PS10, Peep5 and FiO2 70%, He is on Propofol drip and Versed drip to maintained his sedation. He is getting Banana bag for his underlying alcohol related electrolyte disturbance ans fluid management. He is getting GI prophylaxis with Protonix. 07/27: No further seizure activity noted and well sedated. I will continue his current management and keep him on Vent. today. I will hold his Lovenox due to hematuria and his low Plt. I will use SCD's. I will try to taper his Versed and evaluate him. I will also taper his Propofol gradually. 07/28: With taper of sedation, the patient became agitated. Will continue with intubation and sedation. Platelet count 40K this am. Will repeat a CBC this afternoon. He has hematuria and oozing from tongue trauma with seizure. PS increased to 15. (2) Acute hypercapnic respiratory failure Status: Acute Assessment & Plan: He is prophylactically intubated to protect his airways due to his alcohol withdrawal and seizure. He is on Propofol and Versed drip to maintained his sedation. He is on IMV 16, TV 650, PS10, Peep5 and FiO2 70%. 07/27: He is still intubated and tolerating FiO2 35%. His airways is maintained. 07/28: His PS has been increased and his respiratory rate has improved. (3) Electrolyte and fluid disorder Status: Acute Assessment & Plan: I will replace his K and Mag accordingly and I will also check his PO4 level. 07/27: His K level is 2.8 and I will give him 80meq KCL today and recheck his K and Mg level in am. I will also check his PO4 level, CBC and CMP in am. I will decrease his IVF to D5NS to 100ml/h 07/28: His potassium is 3.3 today. Magnesium and phosphorus are now normal. He will receive a K-rider today. Repeat labs in am. (4) End stage liver disease Status: Chronic Assessment & Plan: I will start him on OGT and start Lactulose 30ml VOGT qid. I will repeat his Ammonia level in am. 07/27: He did not have any BM yet but his Ammonia level has decreased from 271 to 45 and his T. bili is 5.1. 07/28: The patient remains on lactulose. Will repeat ammonia level in am. He is now having BMs. Central Venous Access Medical Necessity for Access: Hemodynamic Monitoring, IV Access, Medication Administration Time Spent on Plan of Care: < 30 min Exam Sepsis Risk: No Definite Risk KATIE DOSHI MD Jul 28, 2017 16:45
[2017-07-28] MEDS ORDERED: FOLIC ACID 50 MG/10 ML 1ML INJ IVP ONE (20:00)
[2017-07-28] MEDS: THIAMINE HCL 200 MG/2 ML INJ IVP SCH (20:34)
[2017-07-28] MEDS: PANTOPRAZOLE SOD 40 MG IV VIAL IVP SCH (21:04)
[2017-07-29] VITALS (48 sets, daily range): BP systolic 98–131; BP diastolic 61–89
[2017-07-29] MEDS: LACTULOSE 10 GM/15 ML UDCUP FT SCH ×4 (00:26→20:17)
[2017-07-29] MEDS: PROPOFOL(*)1000 MG/100 ML VIAL 100 ML IV PRN ×4 (01:31→17:48)
[2017-07-29 05:38] LABS: INR 1.52
[2017-07-29 05:46] LABS: PLATELET COUNT, AUTOMATED 47 K/uL (150-450)
--- NOTE | 2017-07-29 06:26 | RADIOLOGY IMAGING REPORT ---
FACILITY: [facility] [place] PATIENT NAME: Kennedy Polanco : 1950 MR: [id number] V: [id number] EXAM DATE: ORDERING PHYSICIAN: KATIE DOSHI TECHNOLOGIST: Location: [facility] [place] Patient: Kennedy Polanco : 1950 Visit/Account:[id number] Date of Sevice: 07/29/2017 CHEST SINGLE AP COMPARISONS: 2 view chest dated February 11, 2017 ADDITIONAL PERTINENT HISTORY: Intubated, detoxing. FINDINGS: Life-support: Endotracheal tube in good position with its tip approximately 7 cm above the cristela. NG tube coursing off the field of view Cardiomediastinal silhouette: Mild cardiomegaly. Otherwise negative Pulmonary vasculature: Negative. Lung jolley: Patchy areas of opacity both lung bases which could represent either areas of atelectat ic change versus infiltrate. Pleural spaces: Negative. Osseous structures: Negative. Surrounding soft tissues: Negative. IMPRESSION: 1. Life support in good position. 2. Strandy areas of opacity in both lung bases either representing atelectatic change versus infiltra te. Report Dictated By: Lionel Padilla MD at 07/29/2017 6:18 AM Report E-Signed By: Lionel Padilla MD at 07/29/2017 6:22 AM WSN:[id number]
[2017-07-29] MEDS ORDERED: methylPREDNIS SUCC 125 MG/2ML IVP ONE (07:50)
[2017-07-29] MEDS ORDERED: MAGNESIUM SUL* 2 GM/50 ML IVPB 50 ML IVPB ONE (08:30)
[2017-07-29] MEDS: TRIAMCINOLONE ACE 0.1% CR 15GM TP SCH ×2 (09:07→20:17)
[2017-07-29] MEDS: ORAL SUCTION/CHLORHX/SWAB KIT MT SCH ×2 (09:07→20:18)
[2017-07-29] MEDS: MOISTURIZING CREAM 120 GM JAR TP SCH ×2 (09:07→20:18)
[2017-07-29] MEDS: KCL/DNS 20 MEQ/1000 ML PREMIX 1,000 ML IV SCH (09:08)
--- NOTE | 2017-07-29 09:46 | Procedure Note ---
Central Line Procedure Note Indication for Central Line: Need for venous access for medication administration, imaging study injection site and lab draws. Consent Signed: No (No family or POA available; proceeded due to medical necessity) Central Line Lumen: Triple Central Line Procedure: Chlorhexidine Prep, Sterile Drapes Applied, Sterile Dressing Applied Central Line Position: L Subclavian Anesthesia Used: 1% Lidocaine (5) CC's of Anesthesia: 5 Complications: None Central Line Post Position: Sutured, Confirmed Blood Return, Position Confirmed w/CXR Comment Platelets recognized at 47. Accessed on first pass. DANISH BARBA MD Jul 29, 2017 09:45
--- NOTE | 2017-07-29 10:07 | RADIOLOGY IMAGING REPORT ---
FACILITY: [facility] PATIENT NAME: Kennedy Polanco : 1950 MR: [id number] V: [id number] EXAM DATE: ORDERING PHYSICIAN: DANISH BARBA TECHNOLOGIST: Location: [facility] Patient: Kennedy Polanco : 1950 Visit/Account:[id number] Date of Sevice: 07/29/2017 CHEST SINGLE AP Indication: central line placement Comparison: Chest x-ray 07/29/2017. Findings: There is a new left subclavian central venous catheter with its tip in the central portion of the lef t innominate vein. There is no evidence of pneumothorax. Endotracheal tube tip is in good position distal third of the trachea. There is a nasogastric tube with its tip in the body the stomach. Lungs: Hazy opacity right lung base and left lung base are unchanged. Upper lung zones are clear. Mediastinum/pulmonary vasculature: Heart size and pulmonary vasculature are normal. Bones/soft tissues: Normal. IMPRESSION: 1. New left subclavian central venous catheter in good position. No evidence of pneumothorax. 2. Endotracheal tube and nasogastric tube in good position. 3. Bibasilar hazy opacities, unchanged. Differential diagnosis includes atelectasis and pneumonia. Report Dictated By: Jeovanny Frausto at 07/29/2017 10:01 AM Report E-Signed By: Jeovanny Frausto at 07/29/2017 10:04 AM WSN:[id number]
[2017-07-29] MEDS: KCL (*) 20 MEQ/100 ML PREMIX 100 ML IV SCH ×4 (10:17→15:11)
--- NOTE | 2017-07-29 10:33 | Medical Nutrition Therapy ---
Nutrition Anthropometrics Height (Inches): 76.00 Height (Calculated Centimeters: 193.062638 Weight (Pounds): 281 Weight (Calculated Kilograms): 127.601 BMI Calculated: 32.25 Cameron Nutrition Score: Probably Inadequate Cameron Nutrition Risk Score: 13 Dietary Referral Nutrition Risk Factors: Nutrition Risk Comment: Physical Findings Physical Appearance: Obese BMI 30-39 Skin Appearance Skin Appearance: Edema Edema Location Modifier: Edema Location: Type of Edema: Degree of Edema: Gastrointestinal Symptoms GI Symtoms: Tube Present: NG Bowel Sounds: Recent Bowel Pattern: Stool Characteristics: Nutritional Diagnosis Nutritional Risk Acuity 1: Pulm Fail Vent Nutritional Risk Acuity 2: Liver Cirrhosis Nutritional Risk Acuity 3: Alcohol abuse Past Medical History: End stage liver disease, Hyperammonemia, Hyperbilirubinemia,Hypokalemia Hypertension, Alcohol withdrawal seizure Nutritional Acuity: 1-High Nutrition Diagnosis: Altered GI Function Nutrition Etiology: Alcohol Addiction Nutrition Problem/Etiology/Sym: Altered Gastrointestinal (GI) Function related to compromised exocrine function of related GI organs, e.g., liver AEB diagnosis of end stage liver disease/alcoholic cirrhosis. Energy Requirement: 1850 (3576-6762 per ESPEN (11-14 Kcal/kg)) Protein Requirement: 76 (IBW kg 0.8) Fluid Requirement: 1850 Diet Type: Tube Feeding (TF) Nutrition Intervention: Incr diet as tolerated Nutritional Support Current Enteral / Parental: Tube Feeding Tube Feeding Formulas: Osmolite 1cal/ml-Isotonic Tube Feeding Supplement Streng: Full Rate: 50mL/hr Current Calories: 1272 Current Protein: 53 Current Lipids Calories: 694 (from propofol at 26mls/hr) Total Current Calories: 1969 Recommended Tube Feeding Formu: Specialty Formula (promote) Recommended Tube Feeding Formu: 50ml/hr Recommended Duration: 24 Recommended Calories: 1200 Recommended Protein: 75 Recommended Lipids Calories: 694 (propofol at 26mls/hr) Total Recommended Calories: 1894 Nutrition Monitoring & Eval Nutritional Goals Comment: TF will meet nutr needs until oral intake can meet needs. RD Patient Assessment Time: [address] Assessment Type: RD Re-Assessment Patient Nutrition Acuity: 1-High Follow Up Date: Jul 31, 2017 Nutritional Comment: Pt admitted to ICU for intubation with ETOH withdrawal. Alb 3.0, Ammonia 45, Glu 113. Pt NPO with Osmolite 1 Wojciech Tube feeding. TF started at 20mL/hr with final rate of 50mL/hr. Final rate will provide 1272 Kcals, 53 grams protein, and 1010mL of free water. Pt also receiving propofol for sedation which contributes 1.1 kcals/mL as fat. Monitor TF tolerance, labs, etc. 07/29 Pt recieving Osmolite at 50ml/hr. Pt having residuals 100-215ml. Current TF is meeting 106% est kcal needs with propofol at 256mls/hr but only 70% est protein needs. Pt may benefit from Promote at 50 ml/hr which would meet 100% of protein and 102% of kcal needs with propofol. Recommend cont on Osmolite however until TF better tolerated. Will cont to monitor. SONIA COX Jul 29, 2017 10:33
[2017-07-29] MEDS: NS(*) 0.9% 500 ML BAG 500 ML IV PRN ×2 (11:50→20:42)
[2017-07-29] MEDS: IMIPENEM/CILASTA(*) 500MG VIAL 500 MG in NS(*) 0.9% 100 ML BAG 100 ML IVPB SCH ×3 (11:51→23:53)
[2017-07-29] MEDS: MIDAZOLAM 50 MG/10 ML 1ML VIAL 100 MG in NS(*) 0.9% 100 ML BAG 80 ML IV PRN (12:07)
--- NOTE | 2017-07-29 12:18 | Hospitalist Progress Note ---
Subjective Progress Notes Subjective Mr. Mulligan is a 57-year-old male with PMH of HTN, Alcohol Liver Disease/ Cirrhosis and h/o Prostate Cancer who was brought in by EMS from home. Apparently called the ambulance for right-sided weakness. EMS arrived and the patient state he had a history of a TIA. Patient has a history of alcoholism. Patient subsequently had a seizure in the ambulance by EMS and then woke up postictal and combative. He has purposeful movement of all 4 extremities. Patient does have history and his old records of a shelter clearance from April of this year. He was too intoxicated to get out of a cab. Review of his internal medicine records shows a history of ascites secondary to liver cirrhosis. Endoscopy shows no varices. On arrival, patient has 4 mm pupils which are slowly reactive bilaterally. There seems to be an upward into the right gaze. Patient has gross blood coming from his mouth from biting his tongue during the seizure. Because of the patient's agitation and concerns for his airway. Rapid sequence intubation was performed. Patient was given succinyl choline 150 mg and etomidate 20 mg. A #8 ET tube was inserted after the vocal cords were visualized to approximately 23 cm at the gums. There was good vapor in the tube, good color change on capnography. There were good breath sounds bilaterally with bagging. A portable chest x-ray showed good placement of the tube. Patient was maintained on a Diprivan drip and taken to CT scan as part of a stroke alert. ER evaluation revealed low K level 3.0, high Ammonia level 271, low Mag level1.5 , Proteinuria, Troponin <0.012, AST 104 and ALT 43, T.Bili 7.6, INRis 1.3, Alcohol level <10 and urine tox. negative. His head CT scan was negative for acute stroke.. I discussed the case with the ER-MD and admitted the patient to the ICU for further evaluation and management. Patient is currently intubated, sedated with Propofol and Versed drip for Vent management and seizure/DT management. 07/27: He is still critical, intubated, well sedated with Propofol and Versed but stable on ventilator requiring FiO2 35%. He is hemodynamically stable. His Ammonia level has gone down from 271 to 45 after using Lactulose and fluids. His K level is low 2.8. His Plt. are 48K 07/29: Mr. Mulligan is still intubated, ventilated and sedated with Propofol and Versed. He developed fever, purulent discharge from his nostrils and his CXR with RLL atelectasis vs infiltrates. His tongue is swollen and with blood tinged oral secretions. He bit his tongue during his seizure episode. No further seizure noted. He has cheung cath. with hematuria. His Plt are in 47K. Patient Complains of: Neurological: Other (ROS could not obtain due to sedation) Physical Exam Vital Signs Date Time Temp Pulse Resp B/P (MAP) Pulse Ox O2 Delivery O2 Flow Rate FiO2 07/29/17 11:29 30.0 07/29/17 11:23 79 07/29/17 11:22 93 Mechanical Ventilator 07/29/17 11:00 98.4 17 110/70 (83) 07/26/17 18:18 15.0 Intake and Output 07/30/17 07:00 Intake Total 237 ml Output Total 115 ml Balance 122 ml Intake IV Total 177 ml Tube Irrigant 60 ml Output Urine Total 115 ml General Appearance: Other (intubated and sedated) Neuro: No Gross deficits Eyes: Other (sluggish pupils) ENT: Other (significant tongue edema and erythyma ) Cardiovascular: Normal Rhythm & Peripheral Pulses Respiratory: No Respiratory Distress (intubated) GI: Soft and Non-Tender Integumentary: Skin Intact without Lesion / Mass Psych: Other (sedated) Result Diagram: 07/29/17 0514 07/29/17 0514 Monitor Interpretation: Sinus Tachycardia Assessment and Plan Problems: (1) Alcohol withdrawal seizure with complication Status: Acute Assessment & Plan: Patient presented with alcohol withdrawal seizure and with AMS requiring immediate intubation to protect his airways. He is on IMV 16, TV 650, PS10, Peep5 and FiO2 70%, He is on Propofol drip and Versed drip to maintained his sedation. He is getting Banana bag for his underlying alcohol related electrolyte disturbance ans fluid management. He is getting GI prophylaxis with Protonix. 07/27: No further seizure activity noted and well sedated. I will continue his current management and keep him on Vent. today. I will hold his Lovenox due to hematuria and his low Plt. I will use SCD's. I will try to taper his Versed and evaluate him. I will also taper his Propofol gradually. 07/28: With taper of sedation, the patient became agitated. Will continue with intubation and sedation. Platelet count 40K this am. Will repeat a CBC this afternoon. He has hematuria and oozing from tongue trauma with seizure. PS increased to 15. 07/29: He is still requiring ventilator and sedation due to his tongue edema and he developed fever. I will get blood CX/S, Sputum and nasal CX/S, U/A and start him on Primaxin 500mg IV q6h. I will obtain TLC for better IV access by surgery. I discussed the case with Dr. Bo. I will also start him on Steroids for tongue edema with Solumedrol 125mg 1st dose and then 60mg bid and get ENT evaluation. I will keep him on Ventilator (2) Acute hypercapnic respiratory failure Status: Acute Assessment & Plan: He is prophylactically intubated to protect his airways due to his alcohol withdrawal and seizure. He is on Propofol and Versed drip to maintained his sedation. He is on IMV 16, TV 650, PS10, Peep5 and FiO2 70%. 07/27: He is still intubated and tolerating FiO2 35%. His airways is maintained. 07/28: His PS has been increased and his respiratory rate has improved. 07/29: He still requires Ventilator (3) Electrolyte and fluid disorder Status: Acute Assessment & Plan: I will replace his K and Mag accordingly and I will also check his PO4 level. 07/27: His K level is 2.8 and I will give him 80meq KCL today and recheck his K and Mg level in am. I will also check his PO4 level, CBC and CMP in am. I will decrease his IVF to D5NS to 100ml/h 07/28: His potassium is 3.3 today. Magnesium and phosphorus are now normal. He will receive a K-rider today. Repeat labs in am. 07/29: I will replace his K and Mg today with KCL 80meq and MgSO4 2gm IV today and repeat his labs in am (4) End stage liver disease Status: Chronic Assessment & Plan: I will start him on OGT and start Lactulose 30ml VOGT qid. I will repeat his Ammonia level in am. 07/27: He did not have any BM yet but his Ammonia level has decreased from 271 to 45 and his T. bili is 5.1. 07/28: The patient remains on lactulose. Will repeat ammonia level in am. He is now having BMs. 07/29: I will decrease his Lactulose to 30ml VOGT bid. and get Ammonia level in am Central Venous Access Medical Necessity for Access: Hemodynamic Monitoring, IV Access, Medication Administration Critical Time Spent: 30-74 Minutes Copies to: ALLISON HWANG MD Exam Sepsis Risk: No Definite Risk CHUN CUETO MD Jul 29, 2017 12:18
--- NOTE | 2017-07-29 12:57 | Antimicrobial Stewardship ---
Antimicrobial Stewardship MD Service: Hospitalist Indications: Other (Sinusitis, potential Pneumonia, tongue bite) Antimicrobial Used 07/29/17: Started Primaxin 500mg IV q6h - oral randal, pneumonia, sinusitis, tongue bite Duration of Therapy: pending cultures, 7-10 days Start Date: Jul 29, 2017 Height (Calculated Centimeters: 193.187137 Weight (Calculated Kilograms): 127.601 Creatinine Cl 07/29/17: Scr =0.6, CrCl>100mL/min, watch urine output Culture Results: Yes (07/29/17 - Acevedo cultures ordered: sputum, nasal drainage , blood cultures, urine culture) Recommendations re: Culture 07/29/17: Acevedo cultured-- final results pending Sputum: +WBC, 3+ GPC, 3+ GPR, 1+GNR Nasal: 2+ GPC, 1+ GPR, rare GNR Blood: NGTD Comments 67 yo M with a PMH of cirrhosis, fatty liver, ascites, heavy alcohol consumption , H. pylori, and HTN who presented to the ED via ambulance for altered mental status and seizure en route to ED. Intubated to protect airway. During seizure , bit his tongue, which is now swollen and bruised, also with copious nasal drainage and with fever Tmax 102.4 (07/29/17) 07/26/17- Chest xray wnl 07/29/17- Chest xray - possible infiltrates/pneumonia vs. atelectasis Acevedo cultures as above- Started on Primaxin 500mg IV q6h, may need to broaden coverage until cultures return. Broaden coverage with Vancomycin. Recommend adding: Vancomycin 2.5g IV x 1 load, then 2g IV q12h, trough goal 15-20 Kanika Cruz, PharmD, BCOP KANIKA CRUZ Jul 29, 2017 11:41
[2017-07-29] MEDS ORDERED: VANCOMYCIN(*) 1 GM VIAL 2.5 GM in NS(*) 0.9% 250 ML BAG 250 ML IVPB ONE (13:30)
[2017-07-29] MEDS: FOLIC ACID 50 MG/10 ML 1ML INJ IV SCH (20:18)
[2017-07-29] MEDS: THIAMINE HCL 200 MG/2 ML INJ IVP SCH (20:19)
[2017-07-29] MEDS ORDERED: FUROSEMIDE 40 MG/4 ML VIAL IVP ONE (20:30)
[2017-07-29] MEDS: methylPREDNIS SUCC 125 MG/2ML IVP SCH (20:41)
[2017-07-29] MEDS: PANTOPRAZOLE SOD 40 MG IV VIAL IVP SCH (20:42)
[2017-07-30] VITALS (39 sets, daily range): BP systolic 94–127; BP diastolic 58–81
[2017-07-30] MEDS ORDERED: VANCOMYCIN(*) 1 GM VIAL 2 GM in NS(*) 0.9% 250 ML BAG 250 ML IVPB SCH (01:30)
[2017-07-30] MEDS: KCL/DNS 20 MEQ/1000 ML PREMIX 1,000 ML IV SCH (04:38)
[2017-07-30] MEDS: IMIPENEM/CILASTA(*) 500MG VIAL 500 MG in NS(*) 0.9% 100 ML BAG 100 ML IVPB SCH ×4 (05:17→23:54)
[2017-07-30] MEDS: PROPOFOL(*)1000 MG/100 ML VIAL 100 ML IV PRN ×4 (05:18→23:54)
[2017-07-30 05:34] LABS: PLATELET COUNT, AUTOMATED 51 K/uL (150-450)
[2017-07-30 05:38] LABS: INR 1.56
--- NOTE | 2017-07-30 06:08 | RADIOLOGY IMAGING REPORT ---
FACILITY: [facility] - [place] PATIENT NAME: Kennedy Polanco : 1950 MR: [id number] V: [id number] EXAM DATE: ORDERING PHYSICIAN: CHUN CUETO TECHNOLOGIST: [place] [facility] [place] Pol[place] : 1950 Visit/Account:[id number] Date of Sevice: 07/30/2017 CHEST SINGLE AP COMPARISONS: July 29, 2017 ADDITIONAL PERTINENT HISTORY: Intubated FINDINGS: Life-support: Endotracheal tube, NG tube and a left-sided PICC line in stable position. Cardiomediastinal silhouette: Mild cardiomegaly, stable from previous exam Pulmonary vasculature: Negative. Lung jolley: Continued patchy areas of opacity both lung bases improved from previous exam likely re presenting atelectatic change. Pleural spaces: Negative. Osseous structures: Negative. Surrounding soft tissues: Negative. IMPRESSION: 1. Interval improvement in bibasilar atelectatic change. 2. Remaining portions of the exam are stable. Report Dictated By: Lionel Padilla MD at 07/30/2017 6:02 AM Report E-Signed By: Lionel Padilla MD at 07/30/2017 6:04 AM WSN:[id number]
[2017-07-30] MEDS ORDERED: [UNRECOGNIZED DRUG - OTHER] IV ONE ×2 (08:15→10:00)
[2017-07-30] MEDS: TRIAMCINOLONE ACE 0.1% CR 15GM TP SCH ×2 (09:15→20:20)
[2017-07-30] MEDS: LACTULOSE 10 GM/15 ML UDCUP FT SCH ×2 (09:15→20:20)
[2017-07-30] MEDS: methylPREDNIS SUCC 125 MG/2ML IVP SCH ×2 (09:15→20:21)
[2017-07-30] MEDS: ORAL SUCTION/CHLORHX/SWAB KIT MT SCH ×2 (10:13→20:21)
[2017-07-30] MEDS: MOISTURIZING CREAM 120 GM JAR TP SCH ×2 (10:28→20:20)
[2017-07-30] MEDS ORDERED: NS 0.9% 50 ML VIAL 50 ML ONE (13:54)
[2017-07-30] MEDS ORDERED: IOPAMIDOL 76% 75 ML INFUS BTL 75 ML ONE (13:54)
[2017-07-30] MEDS: VANCOMYCIN(*) 1 GM VIAL 2 GM in NS(*) 0.9% 250 ML BAG 250 ML IVPB SCH ×2 (14:28→22:23)
--- NOTE | 2017-07-30 15:08 | Hospitalist Progress Note ---
Subjective Progress Notes Subjective The patient has been having high residuals of TF. More than what is being infused. No concerns from RT about the ventilator. Physical Exam Vital Signs Date Time Temp Pulse Resp B/P (MAP) Pulse Ox O2 Delivery O2 Flow Rate FiO2 07/30/17 13:02 91 Mechanical Ventilator 30.0 07/30/17 13:02 65 16 07/30/17 12:30 105/67 (80) 07/30/17 12:00 97.8 07/26/17 18:18 15.0 Intake and Output 07/31/17 07:00 Intake Total 26 ml Output Total 40 ml Balance -14 ml Intake Oral 0 ml IV Total 26 ml Output Urine Total 40 ml General Appearance: No Acute Distress, Other Neuro: Other (Intubated and sedated) Eyes: PERRLA ENT: Other (Tongue is greyish pink with a whitish watery fluid around it.) Cardiovascular: Regular Rate and Rhythm Respiratory: Clear to Auscultation Result Diagram: 07/30/17 0520 07/30/17 0520 Monitor Interpretation: Sinus Tachycardia Assessment and Plan Problems: (1) Alcohol withdrawal seizure with complication Status: Acute Assessment & Plan: Patient presented with alcohol withdrawal seizure and with AMS requiring immediate intubation to protect his airways. He is on IMV 16, TV 650, PS10, Peep5 and FiO2 70%, He is on Propofol drip and Versed drip to maintained his sedation. He is getting Banana bag for his underlying alcohol related electrolyte disturbance ans fluid management. He is getting GI prophylaxis with Protonix. 07/27: No further seizure activity noted and well sedated. I will continue his current management and keep him on Vent. today. I will hold his Lovenox due to hematuria and his low Plt. I will use SCD's. I will try to taper his Versed and evaluate him. I will also taper his Propofol gradually. 07/28: With taper of sedation, the patient became agitated. Will continue with intubation and sedation. Platelet count 40K this am. Will repeat a CBC this afternoon. He has hematuria and oozing from tongue trauma with seizure. PS increased to 15. 07/29: He is still requiring ventilator and sedation due to his tongue edema and he developed fever. I will get blood CX/S, Sputum and nasal CX/S, U/A and start him on Primaxin 500mg IV q6h. I will obtain TLC for better IV access by surgery. I discussed the case with Dr. Bo. I will also start him on Steroids for tongue edema with Solumedrol 125mg 1st dose and then 60mg bid and get ENT evaluation. I will keep him on Ventilator 07/30: He is on minimal setting on the ventilator. Will change to just Propofol for sedation and stop Versed. He is getting close to being extubated, but concerned about the tongue. CT of the neck is pending. (2) Acute hypercapnic respiratory failure Status: Acute Assessment & Plan: He is prophylactically intubated to protect his airways due to his alcohol withdrawal and seizure. He is on Propofol and Versed drip to maintained his sedation. He is on IMV 16, TV 650, PS10, Peep5 and FiO2 70%. 07/27: He is still intubated and tolerating FiO2 35%. His airways is maintained. 07/28: His PS has been increased and his respiratory rate has improved. 07/29: He still requires Ventilator 07/30: See above. (3) Pneumonia Status: Acute Assessment & Plan: Bilateral infiltrate by CXR. He is on Primaxin. Minimal O2 requirement. Will follow. (4) Tongue abnormality Status: Acute Assessment & Plan: It was noted that he had an enlarged tongue with a whitish liquid around it concerning for a purulent discharge. He likely bit his tongue during a seizure before admission. Steroids were started on 07/30 and Primaxin. Will ENT to evaluate tomorrow. (5) Hypokalemia Status: Acute Assessment & Plan: Secondary to alcohol use. He has been replaced with IV and now has normalized (6) Hypomagnesemia Status: Acute Assessment & Plan: Secondary to alcohol use. He has been replaced with IV and has normalized. (7) End stage liver disease Status: Chronic Assessment & Plan: I will start him on OGT and start Lactulose 30ml VOGT qid. I will repeat his Ammonia level in am. 07/27: He did not have any BM yet but his Ammonia level has decreased from 271 to 45 and his T. bili is 5.1. 07/28: The patient remains on lactulose. Will repeat ammonia level in am. He is now having BMs. 07/29: I will decrease his Lactulose to 30ml VOGT bid. and get Ammonia level in am Central Venous Access Medical Necessity for Access: Hemodynamic Monitoring, IV Access, Medication Administration Exam Sepsis Risk: No Definite Risk MATTHIEU ELLISON MD Jul 30, 2017 15:08
--- NOTE | 2017-07-30 16:02 | RADIOLOGY IMAGING REPORT ---
FACILITY: [facility] - [place] PATIENT NAME: Kennedy Polanco : 1950 MR: [id number] V: [id number] EXAM DATE: ORDERING PHYSICIAN: MATTHIEU ELLISON [place]CHN[place] [facility] [place] Pol[place] : 1950 Visit/Account:[id number] Date of Sevice: 07/30/2017 EXAMINATION: CT neck without IV contrast CT neck with IV contrast HISTORY: Swelling of tongue. COMPARISON: None. TECHNIQUE: Spiral scan was obtained from the hard palate through the upper chest without and with n onionic iodinated intravenous contrast. Sagittal and coronal reformatted images are also submitted. CONTRAST: 75 mL of IV Isovue-370. One of the following dose optimization techniques was utilized in the performance of this exam: Autom ated exposure control; adjustment of the mA and/or kV according to the patient's size; or use of an i terative reconstruction technique. Specific details can be referenced in the facility's radiology C T exam operational policy. FINDINGS: Masses/lesions: There is ill-defined hypodensity with heterogeneous enhancement in the right lateral oral tongue measuring 3.7 x 2.7 cm (axial image 31 series 4). The fatty midline lingual septum is d isplaced toward the left. There is no abnormal enhancement visualized in the left tongue. No discre te rim-enhancing abscess. Airway: There is a well-positioned endotracheal tube. Vessels: Vascular structures are patent. There is a left subclavian line with the tip in the distal subclavian vein. There is a tiny amount of gas in the right subclavian vein and a few small veins i n the right upper mediastinum, anterior to the SVC. Musculoskeletal/body wall: There are moderate degenerative changes of the visualized spine. There ar e large anterior osteophytes at the cervicothoracic junction, with anterior bony fusion from C6 throu gh T2. Lymph nodes: There are a few shotty appearing lymph nodes without enlarged or abnormal morphology lym ph nodes. Visualized orbits/brain/paranasal sinuses: Visualized intracranial contents are normal. There is mod erate mucoperiosteal thickening with air-fluid levels in the paranasal sinuses and some secretions in the nasopharynx. There is an NG tube present via the right nares partly visualized. Upper chest: Small bilateral pleural effusions with septal lines and patchy dependent opacities. IMPRESSION: 1. Heterogeneous enhancement of the right lateral tongue measuring 3.7 x 2.7 cm. Differential consi derations include primary neoplasm such as squamous cell carcinoma, or inflammatory or infectious pro cess. 2. Small amount of gas in the right subclavian vein and in a few small veins in the right upper medi astinum, may be related to recent IV placement or contrast injection. 3. Patchy mucosal thickening in the paranasal sinuses is likely related to intubation and NG tube. 4. Small bilateral pleural effusions with adjacent atelectasis and mild pulmonary edema. Report Dictated By: Rosalina Oneil MD at 07/30/2017 3:50 PM Report E-Signed By: Rosalina Oneil MD at 07/30/2017 3:58 PM WSN:[id number]
--- NOTE | 2017-07-30 16:14 | Medical Nutrition Therapy ---
Nutrition Anthropometrics Height (Inches): 76.00 Height (Calculated Centimeters: 193.471117 Weight (Pounds): 283 Weight (Calculated Kilograms): 128.367 BMI Calculated: 32.25 Cameron Nutrition Score: Probably Inadequate Cameron Nutrition Risk Score: 13 Dietary Referral Nutrition Risk Factors: Nutrition Risk Comment: Physical Findings Physical Appearance: Obese BMI 30-39 Skin Appearance Skin Appearance: Edema Edema Location Modifier: Both Edema Location: Facial Type of Edema: Degree of Edema: 1+ Gastrointestinal Symptoms GI Symtoms: Tube Present: NG Bowel Sounds: Recent Bowel Pattern: Stool Characteristics: Nutritional Diagnosis Nutritional Risk Acuity 1: TPN/PPN, Pulm Fail Vent Nutritional Risk Acuity 2: Liver Cirrhosis Nutritional Risk Acuity 3: Alcohol abuse Past Medical History: End stage liver disease, Hyperammonemia, Hyperbilirubinemia,Hypokalemia Hypertension, Alcohol withdrawal seizure Nutritional Acuity: 1-High Nutrition Diagnosis: Altered GI Function Nutrition Etiology: Alcohol Addiction Nutrition Problem/Etiology/Sym: Altered Gastrointestinal (GI) Function related to compromised exocrine function of related GI organs, e.g., liver AEB diagnosis of end stage liver disease/alcoholic cirrhosis. Energy Requirement: 1850 ([id number] per ESPEN (11-14 Kcal/kg)) Protein Requirement: 76 (IBW kg 0.8) Fluid Requirement: 1850 Diet Type: TPN/PPN Nutrition Intervention: Nutrition support, Incr diet as tolerated Nutritional Support Current Enteral / Parental: TPN Tube Feeding Supplement Streng: Full Rate: final rate 75mL/hr Current Calories: 1836 Current Protein: 76 Current Lipids Calories: 242 (from propofol at 10mls/hr) Total Current Calories: 2078 Recommended Tube Feeding Formu: 50ml/hr Nutrition Monitoring & Eval Nutritional Goals Comment: TPN will meet nutr needs until oral intake can meet needs. RD Patient Assessment Time: [address] Assessment Type: RD Re-Assessment Patient Nutrition Acuity: 1-High Follow Up Date: Aug 02, 2017 Nutritional Comment: Pt admitted to ICU for intubation with ETOH withdrawal. Alb 3.0, Ammonia 45, Glu 113. Pt NPO with Osmolite 1 Wojciech Tube feeding. TF started at 20mL/hr with final rate of 50mL/hr. Final rate will provide 1272 Kcals, 53 grams protein, and 1010mL of free water. Pt also receiving propofol for sedation which contributes 1.1 kcals/mL as fat. Monitor TF tolerance, labs, etc. 07/29 Pt recieving Osmolite at 50ml/hr. Pt having residuals 100-215ml. Current TF is meeting 106% est kcal needs with propofol at 256mls/hr but only 70% est protein needs. Pt may benefit from Promote at 50 ml/hr which would meet 100% of protein and 102% of kcal needs with propofol. Recommend cont on Osmolite however until TF better tolerated. Will cont to monitor. 07/30 TF was d/cinthia d/t high residuals. Pt changed to TPN at 75ml/hr plus lipids. Current TPN order is meeting 112% est kcal and 100% est protein needs. Will cont to monitor. SONIA COX Jul 30, 2017 10:44
[2017-07-30] MEDS: THIAMINE HCL 200 MG/2 ML INJ IVP SCH (19:51)
[2017-07-30] MEDS: FOLIC ACID 50 MG/10 ML 1ML INJ IV SCH (19:52)
[2017-07-30] MEDS: PANTOPRAZOLE SOD 40 MG IV VIAL IVP SCH (20:21)
[2017-07-31] VITALS (47 sets, daily range): BP systolic 110–165; BP diastolic 68–104
[2017-07-31] MEDS: KCL/DNS 20 MEQ/1000 ML PREMIX 1,000 ML IV SCH (05:07)
[2017-07-31] MEDS: PROPOFOL(*)1000 MG/100 ML VIAL 100 ML IV PRN ×4 (05:10→23:19)
[2017-07-31] MEDS: IMIPENEM/CILASTA(*) 500MG VIAL 500 MG in NS(*) 0.9% 100 ML BAG 100 ML IVPB SCH ×4 (05:10→23:19)
[2017-07-31 05:59] LABS: PLATELET COUNT, AUTOMATED 70 K/uL (150-450)
[2017-07-31] MEDS: VANCOMYCIN(*) 1 GM VIAL 2 GM in NS(*) 0.9% 250 ML BAG 250 ML IVPB SCH ×3 (06:24→16:31)
--- NOTE | 2017-07-31 06:42 | RADIOLOGY IMAGING REPORT ---
FACILITY: [facility] - [place] PATIENT NAME: Kennedy Polanco : 1950 MR: [id number] V: [id number] EXAM DATE: ORDERING PHYSICIAN: MATTHIEU ELLISON TECHNOLOGIST: [place] [facility] [place] Pol[place] : 1950 Visit/Account:[id number] Date of Sevice: 07/31/2017 SINGLE AP RADIOGRAPH OF THE CHEST 07/31/2017 6:00 AM. INDICATION: Intubated COMPARISON: 07/30/2017. FINDINGS: Support line and tubes are unchanged. Mild hypoexpansion with bibasilar consolidation/atelectasis, n ot significantly changed. No definite pleural effusion or pneumothorax. Heart size is unchanged. IMPRESSION: No significant change. Report Dictated By: Boogie Francis MD at 07/31/2017 6:38 AM Report E-Signed By: Boogie Francis MD at 07/31/2017 6:39 AM WSN:[id number]
[2017-07-31] MEDS ORDERED: [UNRECOGNIZED DRUG - OTHER] IV SCH (08:15)
[2017-07-31] MEDS ORDERED: ACETAMINOPHEN(*)1000 MG/100 ML 100 ML IVPB PRN (08:30)
[2017-07-31] MEDS ORDERED: FUROSEMIDE 40 MG/4 ML VIAL IVP ONE (08:30)
[2017-07-31] MEDS: methylPREDNIS SUCC 125 MG/2ML IVP SCH ×2 (08:45→20:22)
[2017-07-31] MEDS: MOISTURIZING CREAM 120 GM JAR TP SCH ×2 (08:55→20:23)
[2017-07-31] MEDS: TRIAMCINOLONE ACE 0.1% CR 15GM TP SCH ×2 (08:55→20:22)
[2017-07-31] MEDS: LACTULOSE 10 GM/15 ML UDCUP FT SCH ×2 (08:58→20:22)
[2017-07-31] MEDS: ORAL SUCTION/CHLORHX/SWAB KIT MT SCH ×2 (08:58→20:25)
[2017-07-31] MEDS: [UNRECOGNIZED DRUG - OTHER] IV SCH ×2 (10:18→23:19)
[2017-07-31] MEDS: INSULIN HUM LISPRO 100 UN/ML 3 ML VIAL SUBQ PRN ×3 (12:53→23:25)
--- NOTE | 2017-07-31 14:14 | Hospitalist Progress Note ---
Subjective Progress Notes Subjective Mr. Mulligan is a 57-year-old male with PMH of HTN, Alcohol Liver Disease/ Cirrhosis and h/o Prostate Cancer who was brought in by EMS from home. Apparently called the ambulance for right-sided weakness. EMS arrived and the patient state he had a history of a TIA. Patient has a history of alcoholism. Patient subsequently had a seizure in the ambulance by EMS and then woke up postictal and combative. He has purposeful movement of all 4 extremities. Patient does have history and his old records of a residential clearance from April of this year. He was too intoxicated to get out of a cab. Review of his internal medicine records shows a history of ascites secondary to liver cirrhosis. Endoscopy shows no varices. On arrival, patient has 4 mm pupils which are slowly reactive bilaterally. There seems to be an upward into the right gaze. Patient has gross blood coming from his mouth from biting his tongue during the seizure. Because of the patient's agitation and concerns for his airway. Rapid sequence intubation was performed. Patient was given succinyl choline 150 mg and etomidate 20 mg. A #8 ET tube was inserted after the vocal cords were visualized to approximately 23 cm at the gums. There was good vapor in the tube, good color change on capnography. There were good breath sounds bilaterally with bagging. A portable chest x-ray showed good placement of the tube. Patient was maintained on a Diprivan drip and taken to CT scan as part of a stroke alert. ER evaluation revealed low K level 3.0, high Ammonia level 271, low Mag level1.5 , Proteinuria, Troponin <0.012, AST 104 and ALT 43, T.Bili 7.6, INRis 1.3, Alcohol level <10 and urine tox. negative. His head CT scan was negative for acute stroke.. I discussed the case with the ER-MD and admitted the patient to the ICU for further evaluation and management. Patient is currently intubated, sedated with Propofol and Versed drip for Vent management and seizure/DT management. 07/27: He is still critical, intubated, well sedated with Propofol and Versed but stable on ventilator requiring FiO2 35%. He is hemodynamically stable. His Ammonia level has gone down from 271 to 45 after using Lactulose and fluids. His K level is low 2.8. His Plt. are 48K 07/29: Mr. Mulligan is still intubated, ventilated and sedated with Propofol and Versed. He developed fever, purulent discharge from his nostrils and his CXR with RLL atelectasis vs infiltrates. His tongue is swollen and with blood tinged oral secretions. He bit his tongue during his seizure episode. No further seizure noted. He has cheung cath. with hematuria. His Plt are in 47K. 07/31: He remained intubated and sedated, hemodynamically stable requiring FiO2 30% on Vent. His electrolytes are normal, Hb 12.6, PLT 70, Vanco level 15.7. His BS has been on the high side and he is on sliding scale. ENT evaluation was done, he has edema of the tongue and R- sided hematoma and he is cleared for weaning process. Patient Complains of: Neurological: Other (intubated and sedated.) Physical Exam Vital Signs Date Time Temp Pulse Resp B/P (MAP) Pulse Ox O2 Delivery O2 Flow Rate FiO2 07/31/17 13:07 71 17 07/31/17 13:07 91 Mechanical Ventilator 30.0 07/31/17 13:00 135/78 (97) 07/31/17 12:00 99.0 Intake and Output 08/01/17 07:00 Intake Total 596 ml Output Total 950 ml Balance -354 ml IV Total 536 ml Tube Irrigant 60 ml Output Urine Total 950 ml General Appearance: Other (intubated and sedated) Neuro: No Gross deficits Eyes: Other (sluggish pupils) ENT: Other (ETT/OGT in place) Cardiovascular: Normal Rhythm & Peripheral Pulses Respiratory: No Respiratory Distress (on Vent) GI: Soft and Non-Tender Extremities: Soft and Non Tender, Pulses Psych: Other (inyubated and sedated) Result Diagram: 07/31/17 0510 07/31/17 0510 Monitor Interpretation: Sinus Tachycardia Assessment and Plan Problems: (1) Alcohol withdrawal seizure with complication Status: Acute Assessment & Plan: Patient presented with alcohol withdrawal seizure and with AMS requiring immediate intubation to protect his airways. He is on IMV 16, TV 650, PS10, Peep5 and FiO2 70%, He is on Propofol drip and Versed drip to maintained his sedation. He is getting Banana bag for his underlying alcohol related electrolyte disturbance ans fluid management. He is getting GI prophylaxis with Protonix. 07/27: No further seizure activity noted and well sedated. I will continue his current management and keep him on Vent. today. I will hold his Lovenox due to hematuria and his low Plt. I will use SCD's. I will try to taper his Versed and evaluate him. I will also taper his Propofol gradually. 07/28: With taper of sedation, the patient became agitated. Will continue with intubation and sedation. Platelet count 40K this am. Will repeat a CBC this afternoon. He has hematuria and oozing from tongue trauma with seizure. PS increased to 15. 07/29: He is still requiring ventilator and sedation due to his tongue edema and he developed fever. I will get blood CX/S, Sputum and nasal CX/S, U/A and start him on Primaxin 500mg IV q6h. I will obtain TLC for better IV access by surgery. I discussed the case with Dr. Bo. I will also start him on Steroids for tongue edema with Solumedrol 125mg 1st dose and then 60mg bid and get ENT evaluation. I will keep him on Ventilator 07/30: He is on minimal setting on the ventilator. Will change to just Propofol for sedation and stop Versed. He is getting close to being extubated, but concerned about the tongue. CT of the neck is pending. 07/31: He is intubated and sedated only with Propofol and Versed is off. He is cleared from ENT and I will initiate weaning process today. I will decrease his Solumedrol to 40mg bid, I will use Lasix 40mg IV one dose. I will keep him on Accuchecks q6h with Humolog. I will also keep him on Tylenol 1gm q12 h prn. I ordered morning labs. (2) Acute hypercapnic respiratory failure Status: Acute Assessment & Plan: He is prophylactically intubated to protect his airways due to his alcohol withdrawal and seizure. He is on Propofol and Versed drip to maintained his sedation. He is on IMV 16, TV 650, PS10, Peep5 and FiO2 70%. 07/27: He is still intubated and tolerating FiO2 35%. His airways is maintained. 07/28: His PS has been increased and his respiratory rate has improved. 07/29: He still requires Ventilator 07/30: See above. 07/31: I will start weaning process and plan to extubate him in 24 hours. He is off Versed (3) Pneumonia Status: Acute Assessment & Plan: Bilateral infiltrate by CXR. He is on Primaxin. Minimal O2 requirement. Will follow. 07/31: I will continue his current management of antibiotics. (4) Tongue abnormality Status: Acute Assessment & Plan: It was noted that he had an enlarged tongue with a whitish liquid around it concerning for a purulent discharge. He likely bit his tongue during a seizure before admission. Steroids were started on 07/30 and Primaxin. Will ENT to evaluate tomorrow. 07/31: ENT evaluation done. He has tongue edema and R-hematoma but clear for extubation. (5) Hypokalemia Status: Resolved Assessment & Plan: Secondary to alcohol use. He has been replaced with IV and now has normalized (6) Hypomagnesemia Status: Resolved Assessment & Plan: Secondary to alcohol use. He has been replaced with IV and has normalized. (7) End stage liver disease Status: Chronic Assessment & Plan: I will start him on OGT and start Lactulose 30ml VOGT qid. I will repeat his Ammonia level in am. 07/27: He did not have any BM yet but his Ammonia level has decreased from 271 to 45 and his T. bili is 5.1. 07/28: The patient remains on lactulose. Will repeat ammonia level in am. He is now having BMs. 07/29: I will decrease his Lactulose to 30ml VOGT bid. and get Ammonia level in am Central Venous Access Medical Necessity for Access: Hemodynamic Monitoring, IV Access, Medication Administration Condition Critical Critical Time Spent: 1st 30-74 Minutes Copies to: ALLISON HWANG MD Exam Sepsis Risk: No Definite Risk CHUN CUETO MD Jul 31, 2017 14:14
[2017-07-31] MEDS: NS(*) 0.9% 500 ML BAG 500 ML IV PRN ×2 (17:45→19:55)
--- NOTE | 2017-07-31 18:54 | CONSULTATION ---
EVENT DATE: July 31, 2017 ATTENDING PHYSICIAN Max Davis MD CONSULTING PHYSICIAN Azeem Carrion MD REASON FOR CONSULTATION Tongue swelling. HISTORY OF PRESENT ILLNESS This is a 57-year-old man with a past medical history of hypertension, alcohol abuse, cirrhosis and prostate cancer who was brought initially by ambulance to the emergency department for right-sided weakness. The patient had a witnessed seizure while in transport. The patient was quite agitated, and was sedated and intubated. The patient was noted to have tongue swelling and possible purulent discharge in the oral cavity. The patient underwent a CT scan which demonstrated a collection in the tongue. The patient has been treated with imipenem and vancomycin. I am asked to assess his tongue and airway for possible extubation. PAST MEDICAL HISTORY As above. ALLERGIES CODEINE. REVIEW OF SYSTEMS Unobtainable as patient is intubated and sedated. CURRENT MEDICATIONS * Imipenem. * Insulin. * Vancomycin. * Methylprednisolone. * Pantoprazole. * Folic acid. * Lactulose. * Thiamine FAMILY HISTORY Unobtainable. SOCIAL HISTORY Unobtainable PHYSICAL EXAMINATION VITAL SIGNS: Pulse 71, respiratory rate 17, blood pressure 135/78, pulse ox 91 on an FIO2 of 30. GENERAL: Well-nourished, well-developed, in no apparent distress. NEUROLOGIC: Intubated and sedated. Responds to painful stimuli. HEAD AND FACE: Normocephalic, atraumatic. No gross lesions or scars. EYES: Sclerae are white. Conjunctivae are pink. EARS: External ears unremarkable. NOSE: External nose unremarkable. ORAL CAVITY AND PHARYNX: Intubated. Poor dentition. Floor of mouth soft. Right anterior oral tongue hematoma. Posterior oropharynx widely patent. ASSESSMENT Tongue hematoma. PLAN The patient does have a tongue hematoma on exam. I think he has dried oral secretions rather than teresita purulence. Consider discontinuation of the IV antibiotics if this is treating a suspected tongue abscess. The patient has little to no airway impingement from the hematoma and I think he can be successfully extubated when weaned. Please do not hesitate to call with any further questions or concerns. MTDD
[2017-07-31] MEDS: THIAMINE HCL 200 MG/2 ML INJ IVP SCH (19:35)
[2017-07-31] MEDS: FOLIC ACID 50 MG/10 ML 1ML INJ IV SCH (20:07)
[2017-07-31] MEDS: PANTOPRAZOLE SOD 40 MG IV VIAL IVP SCH (20:22)
[2017-08-01] VITALS (48 sets, daily range): BP systolic 130–179; BP diastolic 76–111
[2017-08-01] MEDS: VANCOMYCIN(*) 1 GM VIAL 2 GM in NS(*) 0.9% 250 ML BAG 250 ML IVPB SCH ×3 (00:19→17:12)
[2017-08-01] MEDS: PROPOFOL(*)1000 MG/100 ML VIAL 100 ML IV PRN ×4 (04:00→21:50)
[2017-08-01 05:16] LABS: PLATELET COUNT, AUTOMATED 68 K/uL (150-450)
[2017-08-01] MEDS: IMIPENEM/CILASTA(*) 500MG VIAL 500 MG in NS(*) 0.9% 100 ML BAG 100 ML IVPB SCH ×4 (05:24→23:34)
[2017-08-01] MEDS: INSULIN HUM LISPRO 100 UN/ML 3 ML VIAL SUBQ PRN ×4 (05:27→23:36)
--- NOTE | 2017-08-01 07:05 | RADIOLOGY IMAGING REPORT ---
[place] [facility] [place] Kennedy Polanco : 1950 MR: [id number] V: [id number] EXAM DATE: ORDERING PHYSICIAN: CHUN CUETO TECHNOLOGIST: Location: Patient: Kennedy Polanco : 1950 Visit/Account:[id number] Date of Sevice: 08/01/2017 CHEST SINGLE AP Additional pertinent History: Intubated. COMPARISON STUDIES: 07/31/2017 FINDINGS: Support lines and catheters: ET tube well-positioned 5 cm from the cristela.. NG tube not as well-visua lized the previous study but appears to be seen down to at least the GE junction. Lungs and Pleura: Left lower lung consolidation and effusion obscuring left diaphragm. Patchy inters titial alveolar infiltrative change in the right lower lung field not obscuring the right hemidiaphra gm. Heart and vasculature: Central vascular engorgement and perihilar interstitial pulmonary edema. Nellie and Mediastinum: Negative. Bones and Chest wall: Negative. Upper Abdomen: Negative. IMPRESSION: 1. Increasing central vascular engorgement and perihilar interstitial pulmonary edema. Persistent bib asilar opacities left greater than right. 2. NG tube not seen well beyond the GE junction. Report Dictated By: Gavin Tang MD at 08/01/2017 6:56 AM Report E-Signed By: Gavin Tang MD at 08/01/2017 7:02 AM WSN:[id number]
[2017-08-01] MEDS ORDERED: FUROSEMIDE 40 MG/4 ML VIAL IVP ONE (08:20)
[2017-08-01] MEDS: methylPREDNIS SUCC 125 MG/2ML IVP SCH ×2 (09:12→20:40)
[2017-08-01] MEDS: ORAL SUCTION/CHLORHX/SWAB KIT MT SCH ×2 (09:15→21:01)
[2017-08-01] MEDS: LACTULOSE 10 GM/15 ML UDCUP FT SCH ×2 (09:18→20:41)
[2017-08-01] MEDS: MOISTURIZING CREAM 120 GM JAR TP SCH ×2 (09:18→20:41)
[2017-08-01] MEDS: TRIAMCINOLONE ACE 0.1% CR 15GM TP SCH ×2 (09:18→20:41)
[2017-08-01] MEDS: [UNRECOGNIZED DRUG - OTHER] IV SCH (13:32)
--- NOTE | 2017-08-01 14:33 | Hospitalist Progress Note ---
Subjective Progress Notes Subjective Mr. Mulligan is a 57-year-old male with PMH of HTN, Alcohol Liver Disease/ Cirrhosis and h/o Prostate Cancer who was brought in by EMS from home. Apparently called the ambulance for right-sided weakness. EMS arrived and the patient state he had a history of a TIA. Patient has a history of alcoholism. Patient subsequently had a seizure in the ambulance by EMS and then woke up postictal and combative. He has purposeful movement of all 4 extremities. Patient does have history and his old records of a fdc clearance from April of this year. He was too intoxicated to get out of a cab. Review of his internal medicine records shows a history of ascites secondary to liver cirrhosis. Endoscopy shows no varices. On arrival, patient has 4 mm pupils which are slowly reactive bilaterally. There seems to be an upward into the right gaze. Patient has gross blood coming from his mouth from biting his tongue during the seizure. Because of the patient's agitation and concerns for his airway. Rapid sequence intubation was performed. Patient was given succinyl choline 150 mg and etomidate 20 mg. A #8 ET tube was inserted after the vocal cords were visualized to approximately 23 cm at the gums. There was good vapor in the tube, good color change on capnography. There were good breath sounds bilaterally with bagging. A portable chest x-ray showed good placement of the tube. Patient was maintained on a Diprivan drip and taken to CT scan as part of a stroke alert. ER evaluation revealed low K level 3.0, high Ammonia level 271, low Mag level1.5 , Proteinuria, Troponin <0.012, AST 104 and ALT 43, T.Bili 7.6, INRis 1.3, Alcohol level <10 and urine tox. negative. His head CT scan was negative for acute stroke.. I discussed the case with the ER-MD and admitted the patient to the ICU for further evaluation and management. Patient is currently intubated, sedated with Propofol and Versed drip for Vent management and seizure/DT management. 07/27: He is still critical, intubated, well sedated with Propofol and Versed but stable on ventilator requiring FiO2 35%. He is hemodynamically stable. His Ammonia level has gone down from 271 to 45 after using Lactulose and fluids. His K level is low 2.8. His Plt. are 48K 07/29: Mr. Mulligan is still intubated, ventilated and sedated with Propofol and Versed. He developed fever, purulent discharge from his nostrils and his CXR with RLL atelectasis vs infiltrates. His tongue is swollen and with blood tinged oral secretions. He bit his tongue during his seizure episode. No further seizure noted. He has cheung cath. with hematuria. His Plt are in 47K. 07/31: He remained intubated and sedated, hemodynamically stable requiring FiO2 30% on Vent. His electrolytes are normal, Hb 12.6, PLT 70, Vanco level 15.7. His BS has been on the high side and he is on sliding scale. ENT evaluation was done, he has edema of the tongue and R- sided hematoma and he is cleared for weaning process. 08/01: Currently patient is on CPAP and tolerating. His Propofol is also gradually tapering down to 20 to evaluate the patient's status. His BS has been high due to steroids and TPN . His Vanco level is pending. He is currently on Primaxin and Vanco. He is cleared by ENT. Patient Complains of: Neurological: Other (He is still intubated and sedated and I could not obtain his ROS) Physical Exam Vital Signs Date Time Temp Pulse Resp B/P (MAP) Pulse Ox O2 Delivery O2 Flow Rate FiO2 08/01/17 14:00 87 08/01/17 13:45 21 08/01/17 13:43 30.0 08/01/17 13:30 151/87 (108) 91 Mechanical Ventilator 08/01/17 12:00 99.2 Intake and Output 08/02/17 07:00 Intake Total 1105 ml Output Total 4050 ml Balance -2945 ml IV Total 1045 ml Tube Irrigant 60 ml Output Urine Total 4050 ml General Appearance: Other (still intubated and sedated.) Eyes: Other (sluggish pupils) Neck: No Masses Cardiovascular: Normal Rhythm & Peripheral Pulses Respiratory: No Respiratory Distress (intubated) GI: Soft and Non-Tender Extremities: Soft and Non Tender Psych: Other Result Diagram: 08/01/17 0456 08/01/17 045 reviewed Monitor Interpretation: Sinus Tachycardia Assessment and Plan Problems: (1) Alcohol withdrawal seizure with complication Status: Acute Assessment & Plan: Patient presented with alcohol withdrawal seizure and with AMS requiring immediate intubation to protect his airways. He is on IMV 16, TV 650, PS10, Peep5 and FiO2 70%, He is on Propofol drip and Versed drip to maintained his sedation. He is getting Banana bag for his underlying alcohol related electrolyte disturbance ans fluid management. He is getting GI prophylaxis with Protonix. 07/27: No further seizure activity noted and well sedated. I will continue his current management and keep him on Vent. today. I will hold his Lovenox due to hematuria and his low Plt. I will use SCD's. I will try to taper his Versed and evaluate him. I will also taper his Propofol gradually. 07/28: With taper of sedation, the patient became agitated. Will continue with intubation and sedation. Platelet count 40K this am. Will repeat a CBC this afternoon. He has hematuria and oozing from tongue trauma with seizure. PS increased to 15. 07/29: He is still requiring ventilator and sedation due to his tongue edema and he developed fever. I will get blood CX/S, Sputum and nasal CX/S, U/A and start him on Primaxin 500mg IV q6h. I will obtain TLC for better IV access by surgery. I discussed the case with Dr. Bo. I will also start him on Steroids for tongue edema with Solumedrol 125mg 1st dose and then 60mg bid and get ENT evaluation. I will keep him on Ventilator 07/30: He is on minimal setting on the ventilator. Will change to just Propofol for sedation and stop Versed. He is getting close to being extubated, but concerned about the tongue. CT of the neck is pending. 07/31: He is intubated and sedated only with Propofol and Versed is off. He is cleared from ENT and I will initiate weaning process today. I will decrease his Solumedrol to 40mg bid, I will use Lasix 40mg IV one dose. I will keep him on Accuchecks q6h with Humolog. I will also keep him on Tylenol 1gm q12 h prn. I ordered morning labs. 08/01: He is still intubated and sedated. He is on Solumedrol, Primaxin and Vanco. He is being weaned off the ventilator today. I discussed the detailed plan with the nursing staff. I will decrease his Solumedrol to 20mg bid, Lasix 40mg Iv one dose, I will order his morning blood work today including his Vanco level. (2) Acute hypercapnic respiratory failure Status: Acute Assessment & Plan: He is prophylactically intubated to protect his airways due to his alcohol withdrawal and seizure. He is on Propofol and Versed drip to maintained his sedation. He is on IMV 16, TV 650, PS10, Peep5 and FiO2 70%. 07/27: He is still intubated and tolerating FiO2 35%. His airways is maintained. 07/28: His PS has been increased and his respiratory rate has improved. 07/29: He still requires Ventilator 07/30: See above. 07/31: I will start weaning process and plan to extubate him in 24 hours. He is off Versed 08/01; Trial of weaning process today (3) Pneumonia Status: Acute Assessment & Plan: Bilateral infiltrate by CXR. He is on Primaxin. Minimal O2 requirement. Will follow. 07/31: I will continue his current management of antibiotics. 08/01: I will continue the same management and get his CXR in am (4) Tongue abnormality Status: Acute Assessment & Plan: It was noted that he had an enlarged tongue with a whitish liquid around it concerning for a purulent discharge. He likely bit his tongue during a seizure before admission. Steroids were started on 07/30 and Primaxin. Will ENT to evaluate tomorrow. 07/31: ENT evaluation done. He has tongue edema and R-hematoma but clear for extubation. (5) Hypokalemia Status: Resolved Assessment & Plan: Secondary to alcohol use. He has been replaced with IV and now has normalized (6) Hypomagnesemia Status: Resolved Assessment & Plan: Secondary to alcohol use. He has been replaced with IV and has normalized. (7) End stage liver disease Status: Chronic Assessment & Plan: I will start him on OGT and start Lactulose 30ml VOGT qid. I will repeat his Ammonia level in am. 07/27: He did not have any BM yet but his Ammonia level has decreased from 271 to 45 and his T. bili is 5.1. 07/28: The patient remains on lactulose. Will repeat ammonia level in am. He is now having BMs. 07/29: I will decrease his Lactulose to 30ml VOGT bid. and get Ammonia level in am Central Venous Access Medical Necessity for Access: Hemodynamic Monitoring, IV Access, Medication Administration Critical Time Spent: 1st 30-74 Minutes Copies to: ALLISON HWANG MD Exam Sepsis Risk: No Definite Risk CHUN CUETO MD Aug 01, 2017 14:33
[2017-08-01] MEDS: PANTOPRAZOLE SOD 40 MG IV VIAL IVP SCH (20:40)
[2017-08-01] MEDS: THIAMINE HCL 200 MG/2 ML INJ IVP SCH (20:41)
[2017-08-01] MEDS: FOLIC ACID 50 MG/10 ML 1ML INJ IV SCH (20:45)
[2017-08-02] VITALS (45 sets, daily range): BP systolic 136–182; BP diastolic 75–137
[2017-08-02] MEDS: VANCOMYCIN(*) 1 GM VIAL 2 GM in NS(*) 0.9% 250 ML BAG 250 ML IVPB SCH (00:58)
[2017-08-02] MEDS: NS(*) 0.9% 500 ML BAG 500 ML IV PRN ×2 (02:32→09:54)
[2017-08-02] MEDS: [UNRECOGNIZED DRUG - OTHER] IV SCH (02:59)
[2017-08-02] MEDS: PROPOFOL(*)1000 MG/100 ML VIAL 100 ML IV PRN ×2 (03:20→09:14)
[2017-08-02] MEDS: IMIPENEM/CILASTA(*) 500MG VIAL 500 MG in NS(*) 0.9% 100 ML BAG 100 ML IVPB SCH (05:21)
[2017-08-02 05:32] LABS: PLATELET COUNT, AUTOMATED 74 K/uL (150-450)
[2017-08-02] MEDS: INSULIN HUM LISPRO 100 UN/ML 3 ML VIAL SUBQ PRN ×3 (06:21→17:56)
--- NOTE | 2017-08-02 06:47 | RADIOLOGY IMAGING REPORT ---
[place] [facility] [place] NAME: Kennedy Polanco : 1950 MR: [id number] V: [id number] EXAM DATE: ORDERING PHYSICIAN: CHUN CUETO TECHNOLOGIST: Location: [facility] Patient: Kennedy Polanco : 1950 Visit/Account:[id number] Date of Sevice: 08/02/2017 CHEST SINGLE AP Additional pertinent History: Intubated COMPARISON STUDIES: 08/01/2017 FINDINGS: Support lines and catheters: ET tube seen 7 cm from the cristela. NG tube coursing through the mediasti num with the distal tip not identified. Lungs and Pleura: Persistent bibasilar atelectasis and patchy infiltrative changes left greater than right. Heart and vasculature: Heart is enlarged. Central vasculature is engorged with no overt failure Nellie and Mediastinum: Negative. Bones and Chest wall: Negative. Upper Abdomen: Negative. IMPRESSION: 1. Degree of central vascular engorgement and perihilar interstitial pulmonary edema with some improv ement when compared to previous study. Persistent bibasilar atelectasis and left lower lung consolida tive change. That is not appreciably different. Report Dictated By: Gavin Tang MD at 08/02/2017 6:40 AM Report E-Signed By: Gavin Tang MD at 08/02/2017 6:42 AM WSN:[id number]
[2017-08-02] MEDS: KCL (*) 20 MEQ/100 ML PREMIX 100 ML IV SCH ×2 (07:28→10:02)
[2017-08-02] MEDS: methylPREDNIS SUCC 125 MG/2ML IVP SCH ×2 (08:39→21:26)
[2017-08-02] MEDS: TRIAMCINOLONE ACE 0.1% CR 15GM TP SCH ×2 (08:50→21:26)
[2017-08-02] MEDS: MOISTURIZING CREAM 120 GM JAR TP SCH ×2 (08:50→21:27)
[2017-08-02] MEDS: LACTULOSE 10 GM/15 ML UDCUP FT SCH (08:50)
[2017-08-02] MEDS: ORAL SUCTION/CHLORHX/SWAB KIT MT SCH ×2 (08:50→21:00)
[2017-08-02] MEDS ORDERED: MAGNESIUM CITRATE 300 ML BTL PO ONE (09:00)
[2017-08-02] MEDS ORDERED: LEVOFLOXACIN/D5W*500 MG/100 ML 100 ML IVPB SCH (10:00)
--- NOTE | 2017-08-02 11:46 | Hospitalist Progress Note ---
Subjective Progress Notes Subjective This patient was admitted for altered mental status and alcohol withdrawal seizures. He had no significant changes overnight. Patient Complains of: Cardiovascular: No: Chest Pain Respiratory: No: Shortness of Breath Physical Exam Vital Signs Date Time Temp Pulse Resp B/P (MAP) Pulse Ox O2 Delivery O2 Flow Rate FiO2 08/02/17 11:30 78 12 162/91 (114) 93 Mechanical Ventilator 30.0 08/02/17 08:00 99.2 Intake and Output 08/03/17 07:00 Intake Total 1022 ml Output Total 225 ml Balance 797 ml IV Total 962 ml Tube Irrigant 60 ml Output Urine Total 225 ml Neuro: Other (Sedated.) Cardiovascular: Regular Rate and Rhythm Respiratory: Other (Bilateral breath sounds present.) GI: Soft and Non-Tender Extremities: No Edema Integumentary: No Cyanosis Result Diagram: 08/02/1751908/02/17519 Item Value Date Time Arterial Blood pH 7.48 H 08/02/17519 Arterial Blood Partial Pressure CO2 38 mmHg H 08/02/17519 Arterial Blood Partial Pressure O2 76 mmHg 08/02/17519 Arterial Blood HCO3 28 mmol/L H 08/02/17519 Item Value Date Time Urine Culture - Final Complete 07/29/17 08 Gilbert Catheter Urine Enterococcus Faecalis (Grp D) Imaging Chest x-ray reviewed. Monitor Interpretation: Sinus Tachycardia Assessment and Plan Problems: (1) Alcohol withdrawal seizure with complication Status: Acute Assessment & Plan: He was admitted for alcohol withdrawal seizures. We placed him on CIWA protocol with diazepam, but he has not required dosing since 07/26. He is on thiamine and folic acid. (2) Acute hypercapnic respiratory failure Status: Acute Assessment & Plan: He was intubated in the emergency department and has remained on mechanical ventilation. He is currently receiving propofol for sedation. He has passed CPAP trials today and we are planning for extubation. (3) Pneumonia Status: Acute Assessment & Plan: His chest x-ray showed bilateral infiltrates and he also had a fever. He was placed on empiric treatment with Primaxin and vancomycin. His cultures have been negative. We converted him to monotherapy with levofloxacin today. (4) UTI (urinary tract infection) Assessment & Plan: His urine culture was positive for Enterococcus. He is on levofloxacin as above. (5) Tongue abnormality Status: Acute Assessment & Plan: It was noted that he had an enlarged tongue with a whitish liquid around it concerning for a purulent discharge. He likely bit his tongue during a seizure before admission. He was evaluated by ENT, and his airway was found to be clear. (6) End stage liver disease Status: Chronic Assessment & Plan: It does appear that he has chronic alcoholic cirrhosis. He did have an elevated ammonia at admission. He is on treatment with lactulose. (7) Hypomagnesemia Status: Resolved Assessment & Plan: Resolved with supplementation. (8) Hypokalemia Status: Resolved Assessment & Plan: He has required intermittent potassium replacement. He is scheduled for another rider today. Central Venous Access Medical Necessity for Access: Hemodynamic Monitoring, IV Access, Medication Administration Exam Sepsis Risk: No Definite Risk Problem Qualifiers (1) Pneumonia: Pneumonia type: due to unspecified organism NASEEM ZAMORA DO Aug 02, 2017 11:46
[2017-08-02] MEDS ORDERED: KCL (*) 20 MEQ/100 ML PREMIX 100 ML IV ONE (12:00)
--- NOTE | 2017-08-02 12:27 | Medical Nutrition Therapy ---
Nutrition Anthropometrics Height (Inches): 76.00 Height (Calculated Centimeters: [phone] Weight (Pounds): 284 Weight (Calculated Kilograms): 129.047 BMI Calculated: 32.25 Cameron Nutrition Score: Adequate Cameron Nutrition Risk Score: 14 Dietary Referral Nutrition Risk Factors: Nutrition Risk Comment: Physical Findings Physical Appearance: Obese BMI 30-39 Skin Appearance Skin Appearance: Edema Edema Location Modifier: Both Edema Location: Facial Type of Edema: Degree of Edema: 1+ Gastrointestinal Symptoms GI Symtoms: Tube Present: NG Bowel Sounds: Recent Bowel Pattern: Stool Characteristics: Nutrition/Food History No Significant Nutr. HX Nutritional Diagnosis Nutritional Risk Acuity 1: TPN/PPN, Pulm Fail Vent Nutritional Risk Acuity 2: Liver Cirrhosis Nutritional Risk Acuity 3: Alcohol abuse Past Medical History: End stage liver disease, Hyperammonemia, Hyperbilirubinemia,Hypokalemia Hypertension, Alcohol withdrawal seizure Nutritional Acuity: 1-High Nutrition Diagnosis: Altered GI Function Nutrition Etiology: Alcohol Addiction Nutrition Problem/Etiology/Sym: Altered Gastrointestinal (GI) Function related to compromised exocrine function of related GI organs, e.g., liver AEB diagnosis of end stage liver disease/alcoholic cirrhosis. Energy Requirement: 1850 ([id number] per ESPEN (11-14 Kcal/kg)) Protein Requirement: 76 (IBW kg 0.8) Fluid Requirement: 1850 Diet Type: TPN/PPN Nutrition Intervention: Nutrition support, Incr diet as tolerated Nutritional Support Current Enteral / Parental: TPN Tube Feeding Supplement Streng: Full Rate: final rate 75mL/hr Current Calories: 1836 Current Protein: 76 Current Lipids Calories: 242 (from propofol at 10mls/hr) Total Current Calories: 2078 Recommended Tube Feeding Formu: 50ml/hr Nutrition Monitoring & Eval Nutrition Goals: Eat 75-100% Meal RD Patient Assessment Time: [address] Assessment Type: RD Re-Assessment Patient Nutrition Acuity: 1-High Follow Up Date: Aug 04, 2017 Nutritional Comment: Pt admitted to ICU for intubation with ETOH withdrawal. Alb 3.0, Ammonia 45, Glu 113. Pt NPO with Osmolite 1 Wojciech Tube feeding. TF started at 20mL/hr with final rate of 50mL/hr. Final rate will provide 1272 Kcals, 53 grams protein, and 1010mL of free water. Pt also receiving propofol for sedation which contributes 1.1 kcals/mL as fat. Monitor TF tolerance, labs, etc. 07/29 Pt recieving Osmolite at 50ml/hr. Pt having residuals 100-215ml. Current TF is meeting 106% est kcal needs with propofol at 256mls/hr but only 70% est protein needs. Pt may benefit from Promote at 50 ml/hr which would meet 100% of protein and 102% of kcal needs with propofol. Recommend cont on Osmolite however until TF better tolerated. Will cont to monitor. 07/30 TF was d/cinthia d/t high residuals. Pt changed to TPN at 75ml/hr plus lipids. Current TPN order is meeting 112% est kcal and 100% est protein needs. Will cont to monitor. 08/02 [id number], Alb 2.8, K+ 3.1. Pt continues with TPN Clinimix 4.25%-25% at 75mL/hr. Pt also receiving varying amounts of propofol for sedation which contributes 1.1 kcals/mL as fat . Pt receiving 1836 Kcal and 76 grams protein from TPN. Monitor for tolerance and diet progression. LANCE ENGLISH Aug 02, 2017 12:27
[2017-08-02] MEDS ORDERED: [UNRECOGNIZED DRUG - OTHER] IV SCH (15:30)
[2017-08-02] MEDS: FOLIC ACID 50 MG/10 ML 1ML INJ IV SCH (19:56)
[2017-08-02] MEDS: THIAMINE HCL 200 MG/2 ML INJ IVP SCH (19:57)
[2017-08-02] MEDS ORDERED: LACTULOSE 10 GM/15 ML UDCUP PO SCH (21:00)
[2017-08-02] MEDS: PANTOPRAZOLE SOD 40 MG IV VIAL IVP SCH (21:26)
[2017-08-03] VITALS (34 sets, daily range): BP systolic 135–169; BP diastolic 85–120
[2017-08-03] MEDS: NS(*) 0.9% 500 ML BAG 500 ML IV PRN ×2 (01:32→06:35)
[2017-08-03 05:13] LABS: PLATELET COUNT, AUTOMATED 80 K/uL (150-450)
[2017-08-03] MEDS: INSULIN HUM LISPRO 100 UN/ML 3 ML VIAL SUBQ PRN (06:34)
[2017-08-03] MEDS ORDERED: LACTULOSE 10 GM/15 ML UDCUP PO SCH (09:00)
[2017-08-03] MEDS: LEVOFLOXACIN 500 MG TAB PO SCH (09:30)
[2017-08-03] MEDS: METOPROLOL TART 50 MG TAB PO SCH ×2 (09:31→20:24)
[2017-08-03] MEDS: predniSONE 20 MG TAB PO SCH (09:32)
[2017-08-03] MEDS: FOLIC ACID 1 MG TAB PO SCH (09:32)
[2017-08-03] MEDS: THIAMINE HCL 100 MG TAB PO SCH (09:32)
[2017-08-03] MEDS: PANTOPRAZOLE SOD 40 MG TABEC PO SCH (09:33)
[2017-08-03] MEDS: TRIAMCINOLONE ACE 0.1% CR 15GM TP SCH ×2 (09:36→20:24)
[2017-08-03] MEDS: MOISTURIZING CREAM 120 GM JAR TP SCH ×2 (09:36→20:25)
--- NOTE | 2017-08-03 18:19 | Hospitalist Progress Note ---
Subjective Progress Notes Subjective The patient denies new complaints. Physical Exam Vital Signs Date Time Temp Pulse Resp B/P (MAP) Pulse Ox O2 Delivery O2 Flow Rate FiO2 08/03/17 16:00 98.6 66 19 156/94 (114) 95 Nasal Cannula 2.0 08/02/17 14:00 30.0 Intake and Output 08/04/17 07:00 Intake Total 762 ml Output Total 950 ml Balance -188 ml Intake Oral 300 ml IV Total 462 ml Output Urine Total 950 ml # Bowel Movements 2 General Appearance: Alert, Awake, No Acute Distress, Afebrile Neuro: No Gross deficits Cardiovascular: Regular Rate and Rhythm Respiratory: Clear to Auscultation GI: Soft and Non-Tender Extremities: Warm, Perfused Psych: Appropriate Mood & Affect Result Diagram: 08/03/1743408/03/17434 Monitor Interpretation: Sinus Tachycardia Assessment and Plan Problems: (1) Alcohol withdrawal seizure with complication Status: Acute Assessment & Plan: He was admitted for alcohol withdrawal seizures. We placed him on CIWA protocol with diazepam, but he has not required dosing since 07/26. He is on thiamine and folic acid. (2) Acute hypercapnic respiratory failure Status: Acute Assessment & Plan: He was intubated in the emergency department and remained on mechanical ventilation until 08/02. He is doing well post-extubation. (3) Pneumonia Status: Acute Assessment & Plan: His chest x-ray showed bilateral infiltrates and he also had a fever. He was placed on empiric treatment with Primaxin and vancomycin. His cultures have been negative. We converted him to monotherapy with levofloxacin on 08/02. (4) UTI (urinary tract infection) Assessment & Plan: His urine culture was positive for Enterococcus. He is on levofloxacin as above. (5) Tongue abnormality Status: Acute Assessment & Plan: It was noted that he had an enlarged tongue with a whitish liquid around it concerning for a purulent discharge. He likely bit his tongue during a seizure before admission. He was evaluated by ENT, and his airway was found to be clear. (6) End stage liver disease Status: Chronic Assessment & Plan: It does appear that he has chronic alcoholic cirrhosis. He did have an elevated ammonia at admission. He is on treatment with lactulose. He has had multiple stools and his ammonia has decreased. Will decrease his lactulose and recheck an ammonia level in the am. (7) Hypomagnesemia Status: Resolved Assessment & Plan: Resolved with supplementation. (8) Hypokalemia Status: Resolved Assessment & Plan: He has required intermittent IV potassium replacement. His potassium was 3.[address] on oral potassium. Central Venous Access Medical Necessity for Access: Hemodynamic Monitoring, IV Access, Medication Administration Time Spent on Plan of Care: < 30 min Exam Sepsis Risk: No Definite Risk Problem Qualifiers (1) Pneumonia: Pneumonia type: due to unspecified organism KATIE DOSHI MD Aug 03, 2017 18:19
[2017-08-03] MEDS: POTASSIUM CHL 10 MEQ TABCR PO SCH (19:16)
[2017-08-04 05:02] VITALS: BP 109/69
[2017-08-04 06:34] LABS: PLATELET COUNT, AUTOMATED 86 K/uL (150-450)
[2017-08-04 06:40] LABS: INR 1.4
[2017-08-04 06:44] VITALS: BP 123/74
[2017-08-04] MEDS: THIAMINE HCL 100 MG TAB PO SCH (08:43)
[2017-08-04] MEDS: POTASSIUM CHL 10 MEQ TABCR PO SCH ×3 (08:43→16:35)
[2017-08-04] MEDS: FOLIC ACID 1 MG TAB PO SCH (08:43)
[2017-08-04] MEDS: predniSONE 20 MG TAB PO SCH (08:43)
[2017-08-04] MEDS: PANTOPRAZOLE SOD 40 MG TABEC PO SCH (08:43)
[2017-08-04] MEDS: METOPROLOL TART 50 MG TAB PO SCH ×2 (09:00→20:54)
[2017-08-04] MEDS: LEVOFLOXACIN 500 MG TAB PO SCH (10:02)
[2017-08-04] MEDS: MOISTURIZING CREAM 120 GM JAR TP SCH ×2 (10:02→20:53)
[2017-08-04] MEDS: TRIAMCINOLONE ACE 0.1% CR 15GM TP SCH ×2 (10:02→20:53)
[2017-08-04 10:38] VITALS: BP 119/70
--- NOTE | 2017-08-04 11:51 | Hospitalist Progress Note ---
Subjective Progress Notes Subjective No new complaints. Physical Exam Vital Signs Date Time Temp Pulse Resp B/P (MAP) Pulse Ox O2 Delivery O2 Flow Rate FiO2 08/04/17 10:38 98.3 68 20 119/70 (86) 94 Room Air 1.0 08/02/17 14:00 30.0 Intake and Output 08/05/17 07:00 Output Total 350 ml Balance -350 ml Output Urine Total 350 ml # Bowel Movements 1 General Appearance: Alert, Awake, No Acute Distress Neuro: No Gross deficits Eyes: PERRLA Cardiovascular: Regular Rate and Rhythm, No Edema Respiratory: Clear to Auscultation (L basilar rales.) GI: Soft and Non-Tender Extremities: Warm, Perfused Integumentary: Skin Intact without Lesion / Mass Psych: Appropriate Mood & Affect Result Diagram: 08/04/17 0610 08/04/17 06 Monitor Interpretation: Sinus Tachycardia Assessment and Plan Problems: (1) Generalized weakness Status: Acute Assessment & Plan: Likely due to all of his acute issues below. PT and OT working with the patient. Recommending short term subacute rehab. Await recommendation rehab facility. (2) Hypokalemia Status: Resolved Assessment & Plan: He has required intermittent IV potassium replacement. His potassium was 3.3 this am. Will continue oral potassium. Recheck BMP in am. (3) Alcohol withdrawal seizure with complication Status: Acute Assessment & Plan: He was admitted for alcohol withdrawal seizures. We placed him on CIWA protocol with diazepam, but he has not required dosing since 07/26. He is on thiamine and folic acid. (4) Acute hypercapnic respiratory failure Status: Acute Assessment & Plan: He was intubated in the emergency department and remained on mechanical ventilation until 08/02. He is doing well post-extubation. (5) Pneumonia Status: Acute Assessment & Plan: His chest x-ray showed bilateral infiltrates and he also had a fever. He was placed on empiric treatment with Primaxin and vancomycin. His cultures have been negative. We converted him to monotherapy with levofloxacin on 08/02. (6) UTI (urinary tract infection) Assessment & Plan: His urine culture was positive for Enterococcus. He is on levofloxacin as above. (7) Tongue abnormality Status: Acute Assessment & Plan: It was noted that he had an enlarged tongue with a whitish liquid around it concerning for a purulent discharge. He likely bit his tongue during a seizure before admission. He was evaluated by ENT, and his airway was found to be clear. (8) End stage liver disease Status: Chronic Assessment & Plan: It does appear that he has chronic alcoholic cirrhosis. He did have an elevated ammonia at admission. He is on treatment with lactulose. He has had multiple stools and his ammonia has decreased. Will stop his lactulose and recheck an ammonia level in the am. (9) Hypomagnesemia Status: Resolved Assessment & Plan: Resolved with supplementation. Central Venous Access Medical Necessity for Access: Hemodynamic Monitoring, IV Access, Medication Administration Exam Sepsis Risk: No Definite Risk Problem Qualifiers (1) Pneumonia: Pneumonia type: due to unspecified organism KATIE DOSHI MD Aug 04, 2017 11:51
[2017-08-04] MEDS: INSULIN HUM LISPRO 100 UN/ML 3 ML VIAL SUBQ PRN (12:19)
[2017-08-04 14:43] VITALS: BP 142/83
--- NOTE | 2017-08-04 16:18 | Medical Nutrition Therapy ---
Nutrition Anthropometrics Height (Inches): 76.00 Height (Calculated Centimeters: 193.229923 Weight (Pounds): 286 Weight (Calculated Kilograms): 129.841 BMI Calculated: 32.25 Cameron Nutrition Score: Adequate Cameron Nutrition Risk Score: 15 Dietary Referral Nutrition Risk Factors: Nutrition Risk Comment: Physical Findings Physical Appearance: Obese BMI 30-39 Skin Appearance Skin Appearance: Edema Edema Location Modifier: Both Edema Location: Lower Extremity Type of Edema: Degree of Edema: 1+ Gastrointestinal Symptoms GI Symtoms: Tube Present: NG Bowel Sounds: Recent Bowel Pattern: Stool Characteristics: Nutritional Diagnosis Nutritional Risk Acuity 2: Liver Cirrhosis Nutritional Risk Acuity 3: Alcohol abuse Past Medical History: End stage liver disease, Hyperammonemia, Hyperbilirubinemia,Hypokalemia Hypertension, Alcohol withdrawal seizure Nutritional Acuity: 2-Moderate Nutrition Diagnosis: Altered GI Function Nutrition Etiology: Alcohol Addiction Nutrition Problem/Etiology/Sym: Altered Gastrointestinal (GI) Function related to compromised exocrine function of related GI organs, e.g., liver AEB diagnosis of end stage liver disease/alcoholic cirrhosis. Energy Requirement: 1850 ([id number] per ESPEN (11-14 Kcal/kg)) Protein Requirement: 76 (IBW kg 0.8) Fluid Requirement: 1850 Diet Type: Clear Liquids Nutrition Intervention: Encourage intake, Incr diet as tolerated Diet Comment To RSA: PLEASE OFFER ENSURE CLEAR Nutrition Monitoring & Eval Nutrition Goals: Eat 50-100% Meal RD Patient Assessment Time: [address] Assessment Type: RD Re-Assessment Patient Nutrition Acuity: 2-Moderate Follow Up Date: Aug 07, 2017 Nutritional Comment: Pt admitted to ICU for intubation with ETOH withdrawal. Alb 3.0, Ammonia 45, Glu 113. Pt NPO with Osmolite 1 Wojciech Tube feeding. TF started at 20mL/hr with final rate of 50mL/hr. Final rate will provide 1272 Kcals, 53 grams protein, and 1010mL of free water. Pt also receiving propofol for sedation which contributes 1.1 kcals/mL as fat. Monitor TF tolerance, labs, etc. 07/29 Pt recieving Osmolite at 50ml/hr. Pt having residuals 100-215ml. Current TF is meeting 106% est kcal needs with propofol at 256mls/hr but only 70% est protein needs. Pt may benefit from Promote at 50 ml/hr which would meet 100% of protein and 102% of kcal needs with propofol. Recommend cont on Osmolite however until TF better tolerated. Will cont to monitor. 07/30 TF was d/cinthia d/t high residuals. Pt changed to TPN at 75ml/hr plus lipids. Current TPN order is meeting 112% est kcal and 100% est protein needs. Will cont to monitor. 08/02 [id number], Alb 2.8, K+ 3.1. Pt continues with TPN Clinimix 4.25%-25% at 75mL/hr. Pt also receiving varying amounts of propofol for sedation which contributes 1.1 kcals/mL as fat . Pt receiving 1836 Kcal and 76 grams protein from TPN. Monitor for tolerance and diet progression. /2 Pt extubated and doing well. TPN/propofol discontinued. Pt upgraded to clear liquid diet. Will provide ensure clear. Notable labs include low H/H, Na 134, Cr 0.6, K+ 3.3, total pro 5.2, and alb 2.4. Will offer nutr supplement and continue to monitor intakes. SONIA COX Aug 04, 2017 10:03
[2017-08-04 18:40] VITALS: BP 146/100
[2017-08-04 23:20] VITALS: BP 138/80
[2017-08-05 06:05] LABS: PLATELET COUNT, AUTOMATED 91 K/uL (150-450)
[2017-08-05 08:02] VITALS: BP 117/66
[2017-08-05] MEDS ORDERED: predniSONE 5 MG TAB PO SCH (09:00)
[2017-08-05] MEDS: METOPROLOL TART 50 MG TAB PO SCH ×2 (09:00→20:40)
--- NOTE | 2017-08-05 09:17 | Hospitalist Progress Note ---
Subjective Progress Notes Subjective He is tolerating oral intake and wanting to eat more. No concerns from staff. Physical Exam Vital Signs Date Time Temp Pulse Resp B/P (MAP) Pulse Ox O2 Delivery O2 Flow Rate FiO2 08/05/17 08:02 97.8 69 14 117/66 (83) 96 Nasal Cannula 1.0 08/02/17 14:00 30.0 Intake and Output 08/06/17 07:00 # Voids 1 # Bowel Movements 1 General Appearance: Alert, Awake, No Acute Distress Cardiovascular: Regular Rate and Rhythm Respiratory: Clear to Auscultation Result Diagram: 08/05/17 0547 08/05/17 0547 Monitor Interpretation: Sinus Tachycardia Assessment and Plan Problems: (1) Generalized weakness Status: Acute Assessment & Plan: Likely due to all of his acute issues below. PT and OT working with the patient. Recommending short term subacute rehab. Await recommendation rehab facility. (2) Hypokalemia Status: Resolved Assessment & Plan: He has required intermittent IV potassium replacement. His potassium was 3.2 this am. Will continue oral potassium. Recheck BMP/Mg in am. (3) Alcohol withdrawal seizure with complication Status: Acute Assessment & Plan: He was admitted for alcohol withdrawal seizures. We placed him on CIWA protocol with diazepam, but he has not required dosing since 07/26. He is on thiamine and folic acid. (4) Acute hypercapnic respiratory failure Status: Acute Assessment & Plan: He was intubated in the emergency department and remained on mechanical ventilation until 08/02. He is doing well post-extubation. (5) Pneumonia Status: Acute Assessment & Plan: His chest x-ray showed bilateral infiltrates and he also had a fever. He was placed on empiric treatment with Primaxin and vancomycin on 07/29. His cultures have been negative. We converted him to monotherapy with levofloxacin on 08/02. (6) UTI (urinary tract infection) Assessment & Plan: His urine culture was positive for Enterococcus. He is on levofloxacin as above. (7) Tongue abnormality Status: Acute Assessment & Plan: It was noted that he had an enlarged tongue with a whitish liquid around it concerning for a purulent discharge. He likely bit his tongue during a seizure before admission. He was evaluated by ENT, and his airway was found to be clear. He is on a tapering dose of steroids. (8) End stage liver disease Status: Chronic Assessment & Plan: It does appear that he has chronic alcoholic cirrhosis. He did have an elevated ammonia at admission. He is on treatment with lactulose. He has had multiple stools and his ammonia has decreased. Lactulose stopped. Recheck an ammonia level in the am. (9) Hypomagnesemia Status: Resolved Assessment & Plan: Resolved with supplementation. (10) Steroid-induced hyperglycemia Status: Acute Assessment & Plan: Improving with tapering of steroids. Will stop glucose checks and SSI. Central Venous Access Medical Necessity for Access: Hemodynamic Monitoring, IV Access, Medication Administration Exam Sepsis Risk: No Definite Risk Problem Qualifiers (1) Pneumonia: Pneumonia type: due to unspecified organism MATTHIEU ELLISON MD Aug 05, 2017 09:17
[2017-08-05] MEDS: PANTOPRAZOLE SOD 40 MG TABEC PO SCH (09:37)
[2017-08-05] MEDS: POTASSIUM CHL 10 MEQ TABCR PO SCH ×3 (09:37→17:16)
[2017-08-05] MEDS: FOLIC ACID 1 MG TAB PO SCH (09:38)
[2017-08-05] MEDS: THIAMINE HCL 100 MG TAB PO SCH (09:38)
[2017-08-05] MEDS: LEVOFLOXACIN 500 MG TAB PO SCH (09:40)
[2017-08-05] MEDS: predniSONE 10 MG TAB PO SCH (09:43)
[2017-08-05] MEDS: TRIAMCINOLONE ACE 0.1% CR 15GM TP SCH ×2 (09:44→20:40)
[2017-08-05] MEDS: MOISTURIZING CREAM 120 GM JAR TP SCH ×2 (09:44→20:40)
[2017-08-05 09:46] VITALS: BP 105/63
[2017-08-05 11:38] VITALS: BP 116/78
[2017-08-05 15:25] VITALS: BP 104/62
[2017-08-05 18:58] VITALS: BP 133/84
[2017-08-06 03:19] VITALS: BP 144/77
[2017-08-06 06:30] LABS: PLATELET COUNT, AUTOMATED 127 K/uL (150-450)
[2017-08-06 08:02] VITALS: BP 119/75
[2017-08-06] MEDS: METOPROLOL TART 50 MG TAB PO SCH (09:00)
[2017-08-06] MEDS: TRIAMCINOLONE ACE 0.1% CR 15GM TP SCH ×2 (09:00→20:21)
[2017-08-06] MEDS: MOISTURIZING CREAM 120 GM JAR TP SCH ×2 (09:00→20:21)
[2017-08-06 09:02] VITALS: BP 121/64
[2017-08-06] MEDS: FOLIC ACID 1 MG TAB PO SCH (09:25)
[2017-08-06] MEDS: LEVOFLOXACIN 500 MG TAB PO SCH (09:25)
[2017-08-06] MEDS: predniSONE 10 MG TAB PO SCH (09:25)
[2017-08-06] MEDS: THIAMINE HCL 100 MG TAB PO SCH (09:25)
[2017-08-06] MEDS: POTASSIUM CHL 10 MEQ TABCR PO SCH ×3 (09:25→18:46)
[2017-08-06] MEDS: PANTOPRAZOLE SOD 40 MG TABEC PO SCH (09:25)
[2017-08-06] MEDS ORDERED: MAGNESIUM SUL* 2 GM/50 ML IVPB 50 ML IVPB ONE (10:30)
[2017-08-06 11:14] VITALS: BP 123/67
[2017-08-06] MEDS ORDERED: NS(*) 0.9% 250 ML BAG 250 ML IV SCH (12:05)
--- NOTE | 2017-08-06 14:22 | Hospitalist Progress Note ---
Subjective Progress Notes Subjective He is without complaints. He does not want to go the [facility] nor to [facility]. Physical Exam Vital Signs Date Time Temp Pulse Resp B/P (MAP) Pulse Ox O2 Delivery O2 Flow Rate FiO2 08/06/17 11:14 98.4 68 18 123/67 (85) 95 Room Air 81 08/05/17 09:47 1.0 08/02/17 14:00 30.0 Intake and Output 08/07/17 07:00 Intake Total 460 ml Balance 460 ml Intake Oral 460 ml # Voids 1 # Bowel Movements 1 General Appearance: Alert, Awake, No Acute Distress Result Diagram: 08/06/17 0559 08/06/17 0559 Monitor Interpretation: Sinus Tachycardia Assessment and Plan Problems: (1) Generalized weakness Status: Acute Assessment & Plan: Likely due to all of his acute issues below. PT and OT working with the patient. Recommending short term subacute rehab. He wants to just go home. SW working on getting home health. He still needs to be able to climb a few stairs before he can go home. (2) Hypokalemia Status: Resolved Assessment & Plan: He has required intermittent IV potassium replacement. His potassium was 3.3 this am. Will continue oral potassium. He will get IV Mg today. Recheck BMP/Mg in am. (3) Pneumonia Status: Acute Assessment & Plan: His chest x-ray showed bilateral infiltrates and he also had a fever. He was placed on empiric treatment with Primaxin and vancomycin on 07/29. His cultures have been negative. We converted him to monotherapy with levofloxacin on 08/02. His WBC is elevated today. Will follow. (4) UTI (urinary tract infection) Status: Acute Assessment & Plan: His urine culture was positive for Enterococcus. He is on levofloxacin as above. (5) Tongue abnormality Status: Resolved Assessment & Plan: It was noted that he had an enlarged tongue with a whitish liquid around it concerning for a purulent discharge. He likely bit his tongue during a seizure before admission. He was evaluated by ENT, and his airway was found to be clear. He was on a tapering dose of steroids, which was done on 08/06 (6) End stage liver disease Status: Chronic Assessment & Plan: It does appear that he has chronic alcoholic cirrhosis. He did have an elevated ammonia at admission. He is on treatment with lactulose. He has had multiple stools and his ammonia has decreased. Lactulose stopped. Recheck an ammonia level in the am. (7) Hypomagnesemia Status: Acute Assessment & Plan: Improving with supplementation. (8) Alcohol withdrawal seizure with complication Status: Resolved Assessment & Plan: He was admitted for alcohol withdrawal seizures. We placed him on CIWA protocol with diazepam, but he has not required dosing since 07/26. He is on thiamine and folic acid. (9) Acute hypercapnic respiratory failure Status: Resolved Assessment & Plan: He was intubated in the emergency department and remained on mechanical ventilation until 08/02. He is doing well post-extubation. (10) Steroid-induced hyperglycemia Status: Resolved Assessment & Plan: Improving with tapering of steroids. Glucose checks and SSI stopped. Central Venous Access Medical Necessity for Access: Hemodynamic Monitoring, IV Access, Medication Administration Exam Sepsis Risk: No Definite Risk Problem Qualifiers (1) Pneumonia: Pneumonia type: due to unspecified organism MATTHIEU ELLISON MD Aug 06, 2017 14:22
[2017-08-06 19:11] VITALS: BP 137/75
[2017-08-06 23:20] VITALS: BP 145/104
[2017-08-07 03:30] VITALS: BP 160/92
[2017-08-07 06:18] LABS: PLATELET COUNT, AUTOMATED 124 K/uL (150-450)
[2017-08-07 08:15] VITALS: BP 122/66
[2017-08-07] MEDS ORDERED: LEVO-85 PO (08:23)
--- NOTE | 2017-08-07 08:51 | Hospitalist Depart ---
Discharge Summary Reason for Hosp/Final Diag: (1) Generalized weakness Status: Acute Hospital Course & Plan: Likely due to all of his acute issues below. PT and OT working with the patient. Recommending short term subacute rehab. He wants to just go home. SW working on getting home health. (2) Hypokalemia Status: Acute Hospital Course & Plan: Secondary to alcohol use. He has required intermittent IV and oral potassium replacement. His potassium was 3.4 this am. Starting lisinopril today for HTN, so will stop oral potassium. CMP in 4-5 days. (3) Pneumonia Status: Acute Hospital Course & Plan: His chest x-ray showed bilateral infiltrates and he also had a fever. He was placed on empiric treatment with Primaxin and vancomycin on 07/29. His cultures have been negative. We converted him to monotherapy with levofloxacin on 08/02. His WBC is elevated today, but he is afebrile and on room air. Levofloxacin for 2 more days and a follow up CBC in 4 -5 days. (4) UTI (urinary tract infection) Status: Acute Hospital Course & Plan: His urine culture was positive for Enterococcus. He is on levofloxacin as above. (5) Tongue abnormality Status: Resolved Hospital Course & Plan: It was noted that he had an enlarged tongue with a whitish liquid around it concerning for a purulent discharge. He likely bit his tongue during a seizure before admission. He was evaluated by ENT, and his airway was found to be clear. He was on a tapering dose of steroids, which was done on 08/06 (6) End stage liver disease Status: Chronic Hospital Course & Plan: It does appear that he has chronic alcoholic cirrhosis with mild coagulopathy, hepatic encephalopathy and elevated total bilirubin. He did have an elevated ammonia at admission. He was on treatment with lactulose. He has had multiple stools and his ammonia has decreased. Lactulose was stopped and his ammonia continued to go down and his mental status has been good. His T. shruti continues to go down. CMP in 4-5 days. (7) Hypomagnesemia Status: Acute Hospital Course & Plan: Improving with supplementation. Mg in 4-5 days. (8) Alcohol withdrawal seizure with complication Status: Resolved Hospital Course & Plan: He was admitted for alcohol withdrawal seizures. He was intubated on admission (07/26) for agitation and airway protection. He required IV Versed and Propofol for the withdrawal. He was extubated on 08/02 and has done well in regards to the withdrawal. He was on thiamine and folic acid. He expressed understanding that he needs to stop drinking alcohol. He is willing to talk with a counselor about outpatient treatment options, but only if they can see him this morning. (9) Acute hypercapnic respiratory failure Status: Resolved Hospital Course & Plan: He was intubated in the emergency department for airway protection and remained on mechanical ventilation until 08/02. He is doing well post-extubation. (10) Steroid-induced hyperglycemia Status: Resolved Hospital Course & Plan: Improving with tapering of steroids. Glucose checks and SSI stopped. He is at risk for T2DM and will need to be monitored as an outpatient. Departure Weight (Pounds): 285 Weight (Ounces): 7.0 Result Diagram: 08/07/1752908/07/17 0530 Item Value Date Time Urine WBC 9 /HPF 07/29/17 0847 Urine RBC None /HPF 07/29/17 0847 Urine Leukocyte Esterase Negative 07/29/17 0847 Urine Urobilinogen 4.0 mg/dL H 07/29/17 0847 Urine Squamous Epithelial Cells Many /LPF H 07/29/17 0847 Urine Bacteria Many /HPF H 07/29/17 0847 Urine Protein 30 mg/dL 07/29/17 0847 Item Value Date Time White Blood Count 13.2 k/uL H 07/26/17 1830 White Blood Count 11.2 k/uL H 07/27/17 0525 White Blood Count 7.0 k/uL 07/28/17 0455 White Blood Count 8.4 k/uL 07/28/17 1405 Hemoglobin 17.5 g/dL 07/26/17 1830 Hemoglobin 13.9 g/dL L 07/27/17 0525 Hemoglobin 13.9 g/dL L 07/28/17 0455 Hemoglobin 13.7 g/dL L 07/28/17 1405 Platelet Count 81 K/uL L 07/26/17 1830 Platelet Count 48 K/uL *L 07/27/17 0525 Platelet Count 40 K/uL *L 07/28/17 0455 Platelet Count 50 K/uL *L 07/28/17 1405 Mean Corpuscular Volume 100.7 fL H 07/26/17 1830 Neutrophils (%) (Auto) 72.7 % H 07/26/17 1830 White Blood Count 6.9 k/uL 07/29/17 0514 White Blood Count 4.0 k/uL L 07/30/17 0520 White Blood Count 4.4 k/uL L 07/31/17 0510 White Blood Count 5.0 k/uL 08/01/17 0456 White Blood Count 8.0 k/uL 08/02/17 0520 Hemoglobin 13.3 g/dL L 07/29/17 0514 Hemoglobin 12.8 g/dL L 07/30/17 0520 Hemoglobin 12.6 g/dL L 07/31/17 0510 Hemoglobin 13.4 g/dL L 08/01/17 0456 Hemoglobin 13.3 g/dL L 08/02/17 0520 Platelet Count 47 K/uL *L 07/29/17 0514 Platelet Count 51 K/uL L 07/30/17 0520 Platelet Count 70 K/uL L 07/31/17 0510 Platelet Count 68 K/uL L 08/01/17 0456 Platelet Count 74 K/uL L 08/02/17 0520 White Blood Count 11.3 k/uL H 08/03/17 0435 White Blood Count 9.5 k/uL 08/04/17 0610 White Blood Count 10.1 k/uL 08/05/17 0547 White Blood Count 14.5 k/uL H 08/06/17 0559 White Blood Count 12.9 k/uL H 08/07/17 0530 Hemoglobin 13.7 g/dL L 08/03/17 0435 Hemoglobin 13.3 g/dL L 08/04/17 0610 Hemoglobin 13.5 g/dL L 08/05/17 0547 Hemoglobin 14.0 g/dL 08/06/17 0559 Hemoglobin 13.5 g/dL L 08/07/17 0530 Platelet Count 80 K/uL L 08/03/17 0435 Platelet Count 86 K/uL L 08/04/17 0610 Platelet Count 91 K/uL L 08/05/17 0547 Platelet Count 127 K/uL L 08/06/17 0559 Platelet Count 124 K/uL L 08/07/17 0530 Prothromb Time International Ratio 1.40 08/04/17 0610 Potassium Level 3.0 mmol/L L 07/26/17 1830 Potassium Level 2.8 mmol/L *L 07/27/17 0525 Creatinine 0.80 mg/dl 07/26/17 1830 Creatinine 0.70 mg/dl 07/27/17 0525 Magnesium Level 1.5 mg/dl L 07/26/17 1830 Magnesium Level 2.3 mg/dl H 07/27/17 0525 Total Bilirubin 7.6 mg/dl H 07/26/17 1830 Aspartate Amino Transf (AST/SGOT) 104 U/L H 07/26/17 1830 Alanine Aminotransferase (ALT/SGPT) 43 U/L 07/26/17 1830 Alkaline Phosphatase 133 U/L H 07/26/17 1830 Troponin I < 0.012 ng/ml 07/26/17 1830 Ammonia 271 UMOL/L H 07/26/17 1830 Total Protein 10.2 gm/dl H 07/26/17 1830 Total Bilirubin 5.1 mg/dl H 07/27/17 0525 Aspartate Amino Transf (AST/SGOT) 68 U/L H 07/27/17 0525 Alanine Aminotransferase (ALT/SGPT) 45 U/L 07/27/17 0525 Alkaline Phosphatase 93 U/L 07/27/17 0525 Ammonia 45 UMOL/L H 07/27/17 0525 Phosphorus Level 3.2 mg/dl 07/27/17 0525 Total Bilirubin 3.9 mg/dl H 07/28/17 0455 Total Bilirubin 4.5 mg/dl H 07/29/17 0514 Total Bilirubin 3.6 mg/dl H 07/30/17 0520 Aspartate Amino Transf (AST/SGOT) 67 U/L H 07/28/17 0455 Aspartate Amino Transf (AST/SGOT) 41 U/L H 07/29/17 0514 Aspartate Amino Transf (AST/SGOT) 52 U/L H 07/30/17 0520 Alanine Aminotransferase (ALT/SGPT) 35 U/L 07/28/17 0455 Alanine Aminotransferase (ALT/SGPT) 36 U/L 07/29/17 0514 Alanine Aminotransferase (ALT/SGPT) 35 U/L 07/30/17 0520 Alkaline Phosphatase 89 U/L 07/28/17 0455 Alkaline Phosphatase 84 U/L 07/29/17 0514 Ammonia 46 UMOL/L H 07/29/17 0514 Ammonia 34 UMOL/L H 07/30/17 0520 Alkaline Phosphatase 73 U/L 07/30/17 0520 Potassium Level 3.3 mmol/L L 07/28/17 0455 Potassium Level 3.3 mmol/L L 07/29/17 0514 Potassium Level 4.7 mmol/L 07/29/17 1710 Potassium Level 3.9 mmol/L 07/30/17 0520 Creatinine 0.70 mg/dl 07/28/17 0455 Creatinine 0.60 mg/dl L 07/29/17 0514 Creatinine 0.60 mg/dl L 07/29/17 1710 Creatinine 0.60 mg/dl L 07/30/17 0520 Magnesium Level 1.8 mg/dl 07/30/17 0520 Magnesium Level 2.0 mg/dl 07/31/17 0510 Total Bilirubin 2.2 mg/dl H 07/31/17 0510 Aspartate Amino Transf (AST/SGOT) 60 U/L H 07/31/17 0510 Alanine Aminotransferase (ALT/SGPT) 41 U/L 07/31/17 0510 Alkaline Phosphatase 68 U/L 07/31/17 0510 Creatinine 0.60 mg/dl L 07/31/17 0510 Total Bilirubin 3.1 mg/dl H 08/01/17 0456 Aspartate Amino Transf (AST/SGOT) 73 U/L H 08/01/17 0456 Alanine Aminotransferase (ALT/SGPT) 58 U/L H 08/01/17 0456 Alkaline Phosphatase 71 U/L 08/01/17 0456 Total Bilirubin 3.0 mg/dl H 08/02/17 0520 Total Bilirubin 2.8 mg/dl H 08/03/17 0435 Aspartate Amino Transf (AST/SGOT) 85 U/L H 08/02/17 0520 Alanine Aminotransferase (ALT/SGPT) 73 U/L H 08/02/17 0520 Alkaline Phosphatase 64 U/L 08/02/17 0520 Aspartate Amino Transf (AST/SGOT) 68 U/L H 08/03/17 0435 Alanine Aminotransferase (ALT/SGPT) 90 U/L H 08/03/17 0435 Alkaline Phosphatase 70 U/L 08/03/17 0435 Creatinine 0.60 mg/dl L 08/04/17 0610 Potassium Level 3.3 mmol/L L 08/04/17 0610 Total Bilirubin 2.7 mg/dl H 08/04/17 0610 Aspartate Amino Transf (AST/SGOT) 38 U/L H 08/04/17 0610 Alanine Aminotransferase (ALT/SGPT) 60 U/L H 08/04/17 0610 Alkaline Phosphatase 62 U/L 08/04/17 0610 Total Bilirubin 3.1 mg/dl H 08/05/17 0547 Total Bilirubin 2.8 mg/dl H 08/06/17 0559 Total Bilirubin 2.6 mg/dl H 08/07/17 0530 Aspartate Amino Transf (AST/SGOT) 49 U/L H 08/05/17 0547 Alanine Aminotransferase (ALT/SGPT) 62 U/L H 08/05/17 0547 Alkaline Phosphatase 68 U/L 08/05/17 0547 Aspartate Amino Transf (AST/SGOT) 49 U/L H 08/06/17 0559 Alanine Aminotransferase (ALT/SGPT) 61 U/L H 08/06/17 0559 Alkaline Phosphatase 81 U/L 08/06/17 0559 Alkaline Phosphatase 87 U/L 08/07/17 0530 Alanine Aminotransferase (ALT/SGPT) 57 U/L H 08/07/17 0530 Aspartate Amino Transf (AST/SGOT) 43 U/L H 08/07/17 0530 Creatinine 0.60 mg/dl L 08/05/17 0547 Creatinine 0.60 mg/dl L 08/06/17 0559 Creatinine 0.60 mg/dl L 08/07/17 0530 Potassium Level 3.2 mmol/L L 08/05/1747 Potassium Level 3.3 mmol/L L 08/06/17 0559 Potassium Level 3.4 mmol/L L 08/07/17 0530 SPEC #: [id number] RAJAN: 07/29/17 STATUS: COMP REQ #: [id number] RECD: 07/29/[address] [facility] [address]: CHUN CUETO MD SOURCE: [facility] ENTR: 07/29/[address]: SPDESC: ORDERED: CULT URINE Procedure Result Verified URINE CULTURE Final 07/31/17-925 Organism 1 ENTEROCOCCUS FAECALIS (GRP D) >100,000 COL/ML ENT FAEC M.I.C. RX --------- --- AMPICILLIN <=2 S AMPICILLIN/SULBACTAM S CIPROFLOXACIN 1 S LEVOFLOXACIN 1 S LINEZOLID 1 S NITROFURANTOIN <=16 S BENZYLPENICILLIN 2 S TETRACYCLINE >=16 R VANCOMYCIN 1 S Imaging See the hospital chart for reports of all the tests. There are too numerous CXR to mention. 08/02/17 CXR - 1. Degree of central vascular engorgement and perihilar interstitial pulmonary edema with some improvement when compared to previous study. Persistent bibasilar atelectasis and left lower lung consolidative change. That is not appreciably different. 07/30/[address] - 1. Heterogeneous enhancement of the right lateral tongue measuring 3.7 x 2.7 cm. Differential considerations include primary neoplasm such as squamous cell carcinoma, or inflammatory or infectious process. 2. Small amount of gas in the right subclavian vein and in a few small veins in the right upper mediastinum, may be related to recent IV placement or contrast injection. 3. Patchy mucosal thickening in the paranasal sinuses is likely related to intubation and NG tube. 4. Small bilateral pleural effusions with adjacent atelectasis and mild pulmonary edema. 07/26/17 CXR - 1. Endotracheal tube is in good position approximately 3-4 cm above the cristela. No pneumothorax. 2. Low lung volumes without indication of acute cardiopulmonary disease. 07/26/[address] - No acute intracranial abnormality. Mild cerebral atrophy. Tiny bubbles of air within the left parotid gland. These are of uncertain etiology, however, these could potentially be secondary to air within the veins from venous access. Condition: Improved Discharge: Home Health PT/OT Follow Up For: PT For Strengthening Home Health ENVIRONMENTAL TECH Follow Up For: ADL Assistance Discharge Instructions Home Meds Active Scripts Lisinopril (LISINOPRIL) 10 Mg Tablet, 10 MG PO QDAY, #30 TAB 0 Refills Prov:MATTHIEU ELLISON MD 08/07/17 Allopurinol (ALLOPURINOL) 100 Mg Tablet, 1 TAB PO QDAY, #30 TAB 6 Refills Prov:MATTHIEU ELLISON MD 08/07/17 Levofloxacin 500 Mg Tab (LEVAQUIN 500 MG TAB) 500 Mg Tablet, 500 MG PO QDAY@10, #2 Prov:MATTHIEU ELLISON MD 08/07/17 Pantoprazole Sodium (PANTOPRAZOLE SODIUM) 40 Mg Tablet.dr, 40 MG PO QDAY, #30 TAB.SR 6 Refills Prov:ALLISON HWANG MD 09/28/15 Discontinued Reported Medications Furosemide (LASIX) 20 Mg Tablet, 1 TAB PO QDAY, TAB 09/28/15 Discontinued Scripts Metoprolol Succinate (TOPROL XL) 50 Mg Tab.er.24h, 1 TAB PO QDAY for 30 Days, # 30 TAB 0 Refills Prov:SHANNON SALDAÑA DO 02/11/17 Nystatin (NYSTATIN) 1 Each Powder.ea., 1 EACH MC 1-2XD, #30 GM 1 Refill Prov:ALLISON HWANG MD 08/09/15 Spironolactone (SPIRONOLACTONE) 50 Mg Tablet, 50 MG PO BID, #60 TAB 3 Refills Prov:ALLISON HWANG MD 08/16/15 Diet: Regular Activity: As Tolerated Special Instructions: CMP, Mg and CBC in 4-5 days to follow wbc, liver tests and potassium Don't drink alcohol. Copies to: ALLISON HWANG MD Venous Thromboembolism Antithrombotics Is Pt On Any Antithrombotics?: No Hhno-to-Whel Certification Face to Face Home Health Certification Institutional Provider conducted the [id number] encounter. Electronic Undersigning Physician Certifies Home Health. I certify that the patient has been under my care and that I had a [id number] encounter that meets the physician [id number] encounter requirements with this patient. This patient is home-bound due to safety issues and continues to require assistance with ADL's. I certify that based on my findings, that Nursing, Aides and the following Home Health services are medically necessary: Medical Necessity: Nursing, Rehab Date Face to Face Conducted: Aug 07, 2017 Problem Qualifiers (1) Pneumonia: Pneumonia type: due to unspecified organism MATTHIEU ELLISON MD Aug 07, 2017 08:51
[2017-08-07] MEDS ORDERED: LISI-362 PO (08:52)
[2017-08-07] MEDS ORDERED: ALLO100T70 PO (08:52)
[2017-08-07] MEDS ORDERED: LISINOPRIL 10 MG TAB PO SCH (09:00)
[2017-08-07] MEDS: LEVOFLOXACIN 500 MG TAB PO SCH (09:55)
[2017-08-07] MEDS: PANTOPRAZOLE SOD 40 MG TABEC PO SCH (09:55)
[2017-08-07] MEDS: FOLIC ACID 1 MG TAB PO SCH (09:56)
[2017-08-07] MEDS: MOISTURIZING CREAM 120 GM JAR TP SCH (09:56)
[2017-08-07] MEDS: TRIAMCINOLONE ACE 0.1% CR 15GM TP SCH (09:56)
[2017-08-07] MEDS: THIAMINE HCL 100 MG TAB PO SCH (09:56)
[2017-08-07] MEDS: POTASSIUM CHL 10 MEQ TABCR PO SCH (09:59)
[2017-08-10] MEDS ORDERED: PANT40TA65 PO (16:49)
== END 2017-08-07 11:10 | disposition home health service (06) | DRG 896 ==
LOC: ER 18:27 → EDBD 18:27 → MERGE 20:28 → ICU 20:28 → MED 08-03 16:41
PROVIDERS: ADMIT Specialist; ATTEND Specialist
PROC: 5A1955Z Respiratory Ventilation, Greater than 96 Consecutive Hours (ICD-10-PCS; 2017-07-26)
PROC: 0BH17EZ Insertion of Endotracheal Airway into Trachea, Via Natural or Artificial Opening (ICD-10-PCS; 2017-07-26)
PROC: 05H433Z Insertion of Infusion Device into Left Innominate Vein, Percutaneous Approach (ICD-10-PCS; principal; 2017-07-29)
DX: F10.231 Alcohol dependence with withdrawal delirium (principal); J96.02 Acute respiratory failure with hypercapnia; J18.9 Pneumonia, unspecified organism; N39.0 Urinary tract infection, site not specified; R56.9 Unspecified convulsions; K72.10 Chronic hepatic failure without coma; E87.8 Other disorders of electrolyte and fluid balance, not elsewhere classified; E87.6 Hypokalemia; I10 Essential (primary) hypertension; R31.0 Gross hematuria; B95.2 Enterococcus as the cause of diseases classified elsewhere; S00.532A Contusion of oral cavity, initial encounter; Y90.0 Blood alcohol level of less than 20 mg/100 ml; E66.9 Obesity, unspecified; Z88.5 Allergy status to narcotic agent; Z85.46 Personal history of malignant neoplasm of prostate; Z90.49 Acquired absence of other specified parts of digestive tract; Z68.34 Body mass index [BMI] 34.0-34.9, adult; Z86.73 Personal history of transient ischemic attack (TIA), and cerebral infarction without residual deficits; E83.42 Hypomagnesemia; K70.30 Alcoholic cirrhosis of liver without ascites; M62.81 Muscle weakness (generalized); T38.0X5A Adverse effect of glucocorticoids and synthetic analogues, initial encounter; K14.8 Other diseases of tongue; K21.9 Gastro-esophageal reflux disease without esophagitis; M10.00 Idiopathic gout, unspecified site; R73.9 Hyperglycemia, unspecified; W50.3XXA Accidental bite by another person, initial encounter
CPT/HCPCS: 36415; 36416; 36600; 70450; 70492; 71010; 80202; 80305; 80320; 81001; 82040; 82140; 82247; 82310; 82374; 82435; 82565; 82803; 82947; 82948; 83735; 84075; 84100; 84132; 84155; 84295; 84450; 84460; 84484; 84520; 85025; 85610; 85730; 87040; 87070; 87071; 87073; 87077; 87088; 87186; 87205; 94002; 94003; 94640; 94770; 96361; 96365; 96375; 96376; 97162; 97167; 99285; 99291; 99292; C1758; C9113; J0743; J1644; J1940; J1956; J2060; J2250; J2704; J2930; J3360; J3370; J3411; J3475; J3480; J7030; J7040; J7042; J7050; J7120; J7512; Q9967

== ENCOUNTER → 2017-07-26 | Outpatient (CLI) | payer MEDICARE, OTHER ==
[~2017-07-26] MED LIST: ALL100 PO; ALLO100T70 PO; ASP325 PO; ASPE325 PO; ASPI-757 PO; FLU45SYR17 IM; FURO20TA19 PO; HCTZ; HCTZ25 PO; HYDR-2966 PO; KET10 PO; LEVO-85 PO; LISI-346 PO; LISI-362 PO; LISI-374 PO; LISI20TA29 PO; LISINOPRIL; METO-233 PO; NAPR-1043 PO; NYST1POW MC; PANT40TA65 PO; PER PO; PNEU0.5D3 IM; SPIR25TA78 PO; SPIR50TA31 PO
[2017-07-28 15:29] VITALS: BMI 32.2
== END ==
LOC: AMB 18:02
PROVIDERS: ATTEND Nurse Practitioner
DX: I63.9 Cerebral infarction, unspecified (principal)
CPT/HCPCS: A0425; A0427

== ENCOUNTER → 2017-08-14 | Outpatient (CLI) | payer MEDICARE, OTHER ==
[2017-07-28 15:29] VITALS: BMI 32.2
[~2017-08-14] MED LIST changes: +LEVO-85 PO
[2017-08-14 09:55] LABS: PLATELET COUNT, AUTOMATED 192 K/uL (150-450)
== END ==
LOC: LAB 09:29
PROVIDERS: ATTEND Internal Medicine
DX: E87.6 Hypokalemia (principal); D72.829 Elevated white blood cell count, unspecified; K74.60 Unspecified cirrhosis of liver
CPT/HCPCS: 36415; 82040; 82247; 82310; 82374; 82435; 82565; 82947; 83735; 84075; 84132; 84155; 84295; 84450; 84460; 84520; 85025

== ENCOUNTER → 2017-09-03 | Outpatient (CLI) | payer MEDICARE, OTHER ==
[2017-07-28 15:29] VITALS: BMI 32.2
[2017-09-03 08:40] LABS: PLATELET COUNT, AUTOMATED 132 K/uL (150-450)
--- NOTE | 2017-09-03 10:19 | RADIOLOGY IMAGING REPORT ---
FACILITY: [facility] - [place] PATIENT NAME: Kennedy Polanco : 1950 MR: [id number] V: [id number] EXAM DATE: ORDERING PHYSICIAN: ALLISON HWANG TECHNOLOGIST: Location: [facility] Patient: Kennedy Polanco : 1950 Visit/Account:[id number] Date of Sevice: 09/03/2017 EXAMINATION: Abdominal ultrasound complete HISTORY: End-stage liver disease COMPARISON: August 13, 2015 FINDINGS: Gallbladder: Surgically removed Liver: Liver is decreased in size when compared to the prior study now measuring 10.7 cm in length. There is a heterogeneous echotexture to the liver a lobular contour likely related to cirrhosis. The re is appropriate flow in the portal vein. Common duct: Normal measuring 4.9 mm. Pancreas: Heterogeneous and echogenic Spleen: Spleen is enlarged measuring 16 cm in length measuring 16 cm in length. Kidneys: Normal in size and echogenicity, the right measures 14.1 cm in length, and the left 16.4 cm . No hydronephrosis. The kidneys have a lobular contour bilaterally. There is a 1.5 cm cyst upper pole the right kidney Upper abdominal aorta and IVC: Negative. Ascites: None. IMPRESSION: The liver appears heterogeneous with a lobular contour consistent with cirrhosis. The liver however is decreased in size when compared the prior study Splenomegaly Heterogeneous echogenic appearing pancreas Enlarged lobulated kidneys bilaterally 1.5 cm upper pole right renal cyst Report Dictated By: Cheri Crowe MD at 09/03/2017 10:03 AM Report E-Signed By: Cheri Crowe MD at 09/03/2017 10:16 AM WSN:[id number]
== END ==
LOC: US 02:19
PROVIDERS: ATTEND Internal Medicine
DX: K74.60 Unspecified cirrhosis of liver (principal); R16.1 Splenomegaly, not elsewhere classified; N28.1 Cyst of kidney, acquired; E87.6 Hypokalemia; J96.02 Acute respiratory failure with hypercapnia; F10.239 Alcohol dependence with withdrawal, unspecified; E83.42 Hypomagnesemia; N39.0 Urinary tract infection, site not specified; J18.9 Pneumonia, unspecified organism; K72.90 Hepatic failure, unspecified without coma
CPT/HCPCS: 36415; 76700; 82040; 82247; 82310; 82374; 82435; 82565; 82947; 83735; 84075; 84132; 84155; 84295; 84443; 84450; 84460; 84520; 84550; 85025; 86140